=== PATIENT | male | born 1980 | race Caucasian/White ===

== ENCOUNTER 2018-05-05 13:57 | Inpatient (IN) | payer OTHER ==
[2018-05-05 16:47] VITALS: BMI 20.3
--- NOTE | 2018-05-05 16:58 | HP ---
COWS - Scale Resting Pulse: 0= [place] 80 or Below Sweatin= Chills/Flushing Restless Observation: 1= Difficult to Sit Still Pupil Size: 1= Pupils >than Normal Bone or Joint Aches: 1= Mild Discomfort Runny Nose/ Eye Tearin= Runny Nose/Eyes GI Upset > 30mins: 3= Vomiting/Diarrhea Tremor Observation: 2= Slight Tremor Visible Yawning Observation: 2= >3x During Session Anxiety or Irritability: 2=Irritable/Anxious Goose Flesh Skin: 0=Smooth Skin COWS Score: 15 CIWA Score - CIWA Score Nausea/Vomitin Muscle Tremors: 2 Anxiety: 3 Agitation: 3 Paroxysmal Sweats: 2 Orientation: 1-Uncertain about Date (no distress) Tacttile Disturbances: 1-Very Mild Itch/Numbness Auditory Disturbances: 0-None Visual Disturbances: 0-None Headache: 2-Mild CIWA-Ar Total Score: 17 Admission ROS S - HPI Chief Complaint: opioid and alcohol withdrawal Allergies/Adverse Reactions: Allergies Allergy/AdvReac Type Severity Reaction Status Date / Time No Known Allergies Allergy Verified 05/05/18 17:28 History of Present Illness: 37 yo make with hx of heroin (IV), crack /cocaine, THC, alcohol and nicotine dependence presents with withdrawal symptoms and is here for detox. Last detox three months ago at [facility]. PMHX: OA, Hep C, depression. Denies suicidal / homicidal ideation. Denies hx of drug overdose, seizures or blackouts. Longest period of sobriety five years.. Exam Limitations: No Limitations - Ebola screening Have you traveled outside of the country in the last 21 days: No Have you had contact with anyone from an Ebola affected area: No Have you been sick,other than usual withdrawal symptoms: No Do you have a fever: No - Review of Systems Constitutional: Chills, Diaphoresis, Loss of Appetite, Unintentional Wgt. Loss ( 33 lbs) EENT: reports: No Symptoms Reported Respiratory: reports: No Symptoms reported Cardiac: reports: Palpitations GI: reports: Diarrhea, Nausea, Vomiting : reports: No Symptoms Reported Musculoskeletal: reports: Back Pain, Joint Pain Integumentary: reports: No Symptoms Reported Neuro: reports: See HPI, Headache, Tingling, Dizziness Endocrine: reports: Increased Thirst Hematology: reports: No Symptoms Reported Psychiatric: reports: Orientated x3, Depressed Other Systems: Reviewed and Negative Patient History - Patient Medical History Hx Anemia: No Hx Asthma: No Hx Chronic Obstructive Pulmonary Disease (COPD): No Hx Cancer: No Hx Cardiac Disorders: No Hx Congestive Heart Failure: No Hx Hypertension: No Hx Hypercholesterolemia: No Hx Pacemaker: No HX Cerebrovascular Accident: No Hx Seizures: No Hx Dementia: No Hx Diabetes: No Hx Gastrointestinal Disorders: No Hx Liver Disease: Yes Hx Genitourinary Disorders: No Hx Sexually Transmitted Disorders: No Hx Renal Disease (ESRD): Yes (kidney stones) Hx Thyroid Disease: No Hx Human Immunodeficiency Virus (HIV): No (last tested 03/2018 neg results ) Hx Hepatitis C: Yes Hx Depression: Yes (seroquel and prozac) Hx Suicide Attempt: No Hx Bipolar Disorder: No Hx Schizophrenia: No - Patient Surgical History Past Surgical History: Yes Hx Neurologic Surgery: No Hx Cataract Extraction: No Hx Cardiac Surgery: No Hx Lung Surgery: No Hx Breast Surgery: No Hx Breast Biopsy: No Hx Abdominal Surgery: Yes ([facility]. INGUINAL HERNIA REPAIRS) Hx Appendectomy: No Hx Cholecystectomy: No Hx Genitourinary Surgery: No Hx Section: No Hx Orthopedic Surgery: No Anesthesia Reaction: No - PPD History Previous Implant?: Yes Documented Results: Negative w/proof Date: 12/06/15 Results: 0 MM PPD to be Administered?: Yes - Smoking Cessation Smoking history: Current every day smoker Have you smoked in the past 12 months: Yes Aproximately how many cigarettes per day: 30 Hx Chewing Tobacco Use: No Initiated information on smoking cessation: Yes 'Breaking Loose' booklet given: 05/05/18 - Substance & Tx. History Hx Alcohol Use: Yes Hx Substance Use: Yes Substance Use Type: Alcohol, Cocaine, Heroin, Marijuana, Tranquilizers Hx Substance Use Treatment: Yes (Last detox three months ago at [facility].) - Substances Abused Heroin Route: Injection Frequency: Daily Amount used: 8 -9 Age of first use: 11 Date of Last Use: 05/05/18 Crack Route: Smoking Frequency: Daily Amount used: $20 Age of first use: 20 Date of Last Use: 05/04/18 Cocaine Route: Injection Frequency: Daily Amount used: $50 Age of first use: 11 Date of Last Use: 05/05/18 Alcohol Route: Oral Frequency: Daily Amount used: 2 x fourloko + 1/2 pint vodka Age of first use: 10 Date of Last Use: 05/04/18 Marijuana/Hashish Route: Smoking Frequency: Daily Amount used: $20 Age of first use: 9 Date of Last Use: 05/04/18 Family Disease History - Family Disease History Family Disease History: Diabetes: Grandparent Admission Physical Exam [facility] - Vital Signs Vital Signs: Vital Signs - 24 hr 05/05/18 16:45 Temperature 97.5 F L Pulse Rate 79 Respiratory 19 Rate Blood Pressure 130/78 - Physical General Appearance: Yes: Disheveled, Moderate Distress, Thin, Sweating, Anxious HEENTM: Yes: EOMI, Hearing grossly Normal, Normal ENT Inspection, Normocephalic , Normal Voice, SHAZIA, Pharynx Normal, Tm's normal Respiratory: Yes: Within Normal Limits Neck: Yes: Within Normal Limits Breast: Yes: Breast Exam Deferred Cardiology: Yes: Regular Rhythm, Regular Rate Abdominal: Yes: Normal Bowel Sounds, Non Tender, Flat, Soft Genitourinary: Yes: Within Normal Limits Back: Yes: Normal Inspection Musculoskeletal: Yes: full range of Motion, Gait Steady, Pelvis Stable, Muscle Pain Extremities: Yes: Normal Capillary Refill, Normal Inspection, Normal Range of Motion, Non-Tender Neurological: Yes: machine steak tenderizer II-XII NML intact, Fully Oriented, Alert, Motor Strength 5/5, Depressed Affect Integumentary: Yes: Normal Color, Warm, Diaphoresis Lymphatic: Yes: Within Normal Limits - Diagnostic (1) Nicotine dependence Current Visit: Yes Status: Acute Qualifiers: Nicotine product type: cigarettes (2) Marijuana dependence Current Visit: Yes Status: Acute (3) Alcohol dependence with uncomplicated withdrawal Current Visit: Yes Status: Acute (4) Cocaine dependence, uncomplicated Current Visit: Yes Status: Acute (5) Opioid dependence with withdrawal Current Visit: Yes Status: Acute (6) Arthritis Current Visit: Yes Status: Chronic (7) Chronic low back pain Current Visit: Yes Status: Chronic Qualifiers: Back pain laterality: unspecified (8) Hepatitis C Current Visit: Yes Status: Chronic Qualifiers: Viral hepatitis chronicity: unspecified Hepatic coma status: without hepatic coma Qualified Code(s): B19.20 - Unspecified viral hepatitis C without hepatic coma (9) IVDU (intravenous drug user) Current Visit: Yes Status: Acute Cleared for Admission [facility] - Detox or Rehab [facility] Level of Care: Medically Managed Detox Regimen/Protocol: Methadone/Valium [facility] Breath Alcohol Content Breath Alcohol Content: 0 Urine Drug Screen - Results Drug Screen Negative: No Urine Drug Screen Results: AMANDA-Cocaine, OPI-Opiates, AMP-Amphetamines, FEN- Fentanyl
[2018-05-05] MEDS ORDERED: MAG HYDROX/AL HYDROX/SIMETH 30 ML UNIT-DOSE CUP PO PRN (17:07)
[2018-05-05] MEDS ORDERED: MAGNESIUM CITRATE 300 ML BOTTLE PO PRN (17:07)
[2018-05-05] MEDS ORDERED: guaiFENesin/D-METHORPHAN HB 10 ML UNIT-DOSE CUPS PO PRN (17:07)
[2018-05-05] MEDS ORDERED: MAGNESIUM HYDROX 2400MG/30ML ORAL SUSPENSION 30 ML CUP PO PRN (17:07)
[2018-05-05] MEDS ORDERED: LOPERAMIDE HCL 2 MG CAPSULE PO PRN (17:07)
[2018-05-05] MEDS ORDERED: diazePAM 5 MG TABLET PO ONE (17:07)
[2018-05-05] MEDS ORDERED: IBUPROFEN 400 MG TABLET (FP) PO PRN (17:07)
[2018-05-05] MEDS ORDERED: METHADONE HCL 10 MG TABLET (FOR DETOX USE ONLY) PO ONE ×2 (17:07→23:00)
[2018-05-05] MEDS ORDERED: MENTHOL/PHENOL 1 EACH UD MM PRN (17:07)
[2018-05-05] MEDS ORDERED: P-EPHED 60MG/TRIPROLIDI 2.5MG TABLET PO PRN (17:07)
[2018-05-05] MEDS ORDERED: METHADONE HCL 10 MG TABLET (FOR DETOX USE ONLY) ONE (21:52)
[2018-05-05] MEDS ORDERED: MELATONIN 5 MG TABLETS PO PRN (22:00)
[2018-05-05] MEDS: THIAMINE HCL 100 MG TABLET (FP) PO SCH (22:23)
[2018-05-05] MEDS: diazePAM 5 MG TABLET PO SCH (22:25)
[2018-05-06 02:02] LABS: URINE APPEARANCE CLOUDY; URINE BILIRUBIN NEGATIVE (<2.0 mg/dL); URINE COLOR YELLOW; URINE GLUCOSE (UA) NEGATIVE (NEGATIVE); URINE KETONE NEGATIVE (NEGATIVE); URINE LEUK ESTERASE NEGATIVE (NEGATIVE); URINE NITRITE NEGATIVE (NEGATIVE); URINE PROTEIN NEGATIVE (NEGATIVE); URINE UROBILINOGEN NEGATIVE mg/dL (0.2-1.0)
[2018-05-06 02:53] LABS: CALCIUM OXALATE CRYSTALS RARE /hpf (NONE SEEN); EPI CELLS RARE /HPF (FEW); URINE MUCUS MANY
[2018-05-06] MEDS: diazePAM 5 MG TABLET PO SCH ×3 (05:51→22:20)
[2018-05-06] MEDS ORDERED: METHADONE HCL 10 MG TABLET (FOR DETOX USE ONLY) PO SCH (10:00)
[2018-05-06 10:02] LABS: HEMATOCRIT 39.4 % (35.4-49); HEMOGLOBIN 12.5 GM/dL (11.7-16.9); MCH 27.8 pg (25.7-33.7); MCHC 31.6 g/dl (32.0-35.9); MEAN CELL VOLUME 87.7 fl (80-96); PLATELET COUNT 202 K/MM3 (134-434); RBC 4.49 M/mm3 (4.00-5.60)
[2018-05-06] MEDS: NICOTINE POLACRILEX 4 MG GUM BC PRN ×2 (10:32→22:44)
[2018-05-06] MEDS: NICOTINE 21 MG/24 HOURS TOPICAL PATCH TD SCH (10:32)
[2018-05-06] MEDS: diazePAM 5 MG TABLET PO PRN ×2 (10:32→17:09)
[2018-05-06] MEDS: PRENATAL VITAMINS W/ FOLIC ACID TABLET (FP) PO SCH (10:32)
[2018-05-06] MEDS: ACETAMINOPHEN 325 MG TABLET (FP) PO PRN (10:34)
[2018-05-06] MEDS ORDERED: COLLOIDAL OATMEAL 1 BAR EACH TP PRN (10:43)
[2018-05-06] MEDS ORDERED: ONDANSETRON *ODT* 4 MG TABLET SL PRN (10:44)
[2018-05-06 10:48] LABS: ALBUMIN 3.4 g/dl (3.4-5.0); ALK PHOS 65 U/L (45-117); ANION GAP 11 MMOL/L (8-16); BILIRUBIN,TOTAL 0.4 mg/dL (0.2-1); BLOOD UREA NITROGEN 9 mg/dL (7-18); CHLORIDE 104 mmol/L (98-107); CO2 27 mmol/L (21-32); CREATININE 0.7 mg/dL (0.55-1.3); GLUCOSE,RANDOM 83 mg/dL (74-106); POTASSIUM 4.4 mmol/L (3.5-5.1); SGOT/AST 10 U/L (15-37); SGPT/ALT 18 U/L (13-61); SODIUM 142 mmol/L (136-145); TOT PROT 6.2 g/dl (6.4-8.2)
--- NOTE | 2018-05-06 11:44 | EKG ---
Test Reason : Blood Pressure : / mmHG Vent. Rate : 073 BPM Atrial Rate : 073 BPM P-R Int : 124 ms QRS Dur : 086 ms QT Int : 372 ms P-R-T Axes : -01 058 050 degrees QTc Int : 409 ms NORMAL SINUS RHYTHM MINIMAL VOLTAGE CRITERIA FOR LVH, MAY BE NORMAL VARIANT EARLY REPOLARIZATION BORDERLINE ECG NO PREVIOUS ECGS AVAILABLE Confirmed by RONNELL MOORE, JOSE CRUZ ([id number]) on 05/06/2018 11:43:53 AM Referred By: Confirmed By:JOSE CRUZ REYNAGA MD
[2018-05-06] MEDS: HYDROCORTISONE 1% TOPICAL CREAM 30 GM TUBE TP SCH ×2 (13:34→22:20)
--- NOTE | 2018-05-06 13:42 | CONSULT ---
[facility] Psychiatric Consult - Data Date of interview: 05/06/18 Admission source: [facility] Identifying data: Another admission to [facility] for this 37 y/o male self-referred for detoxification treatment (heroin,cocaine,cannabis,alcohol, xanax).Admitted to [address] [place] [address].Patient is single,a father of five,homeless, unemployed and supported on food stamps. Substance Abuse History: Discussed with the patient in my interview.Mr Jonas confirms this [facility] report about his substance abuse profile.Details as follows : Smoking history: Current every day smoker. Have you smoked in the past 12 months: Yes. Aproximately how many cigarettes per day: 30. Hx Chewing Tobacco Use: No. Initiated information on smoking cessation: Yes. 'Breaking Loose' booklet given: 05/05/18. - Substance & Tx. History. Hx Alcohol Use: Yes. Hx Substance Use: Yes. Substance Use Type: Alcohol, Cocaine, Heroin, Marijuana, Tranquilizers. Hx Substance Use Treatment: Yes (Last detox three months ago at [facility] - Substances Abused. Heroin. Route: Injection. Frequency: Daily. Amount used: 8 -9. Age of first use: 11. Date of Last Use: 05/05/18. Crack. Route: Smoking. Frequency: Daily. Amount used: $20. Age of first use: 20. Date of Last Use: 05/04/18. Cocaine. Route: Injection. Frequency: Daily. Amount used: $50. Age of first use: 11. Date of Last Use: 05/05/18. Alcohol. Route: Oral. Frequency: Daily. Amount used: 2 x fourloko + 1/2 pint vodka. Age of first use: 10. Date of Last Use: . Marijuana/Hashish. Route: Smoking. Frequency: Daily. Amount used: $ 20. Age of first use: 9. Date of Last Use: 05/04/18 Medical History: History of kidney stones,arthritis,hepatitis C and a history of bilateral herniorraphy. Psychiatric History: Patient, in this interview, indicates a history of one psychiatric hospitalization (2000) at a facility in [facility] (name not recalled) .States that he was " hearing voices " at the time.Does not remember names of psychotropics prescribed at the time.No information about diagnosis.No psychiatric follow-up since 2000 until recently (a month ago upon returning from [place]).Mr Pritesh declares that he currently sees a psychiatrist at [facility] for suboxone maintenance (for now two weeks).Patient reports one suicide attempt via hanging (2000). Physical/Sexual Abuse/Trauma History: Patient denies. Additional Comment: Urine Drug Screen Results: AMANDA-Cocaine, OPI-Opiates, AMP- Amphetamines, FEN-Fentanyl.Noted. Mental Status Exam - Mental Status Exam Alert and Oriented to: Time, Place, Person Cognitive Function: Good Patient Appearance: Well Groomed Mood: Nervous, Withdrawn, Anxious, Irritable Affect: Mood Congruent, Constricted Patient Behavior: Fatigued, Cooperative Speech Pattern: Clear, Appropriate Voice Loudness: Normal Thought Process: Intact, Goal Oriented Thought Disorder: Not Present Hallucinations: Denies Suicidal Ideation: Denies Homicidal Ideation: Denies Insight/Judgement: Poor Sleep: Poorly, Difficulty falling asleep Appetite: Good Muscle strength/Tone: Normal Gait/Station: Normal Psychiatric Findings - Problem List ([place] 1, 2,3) (1) Opioid dependence with withdrawal Current Visit: Yes Status: Acute (2) Alcohol dependence with uncomplicated withdrawal Current Visit: Yes Status: Acute (3) Cocaine dependence, uncomplicated Current Visit: Yes Status: Acute (4) Marijuana dependence Current Visit: Yes Status: Acute Comment: As per self-report.Toxicology is negative for THC on this admission. (5) Nicotine dependence Current Visit: Yes Status: Acute Qualifiers: Nicotine product type: cigarettes (6) Substance induced mood disorder Current Visit: Yes Status: Acute (7) Insomnia Current Visit: Yes Status: Acute - Initial Treatment Plan Initial Treatment Plan: Psychoeducation.Detoxification in progress.Sleep hygiene.Ambien 10 mg po hs prn.Side effects/benefits discussed with the patient.Agrees to this careplan.Observation.
--- NOTE | 2018-05-06 14:55 | PN ---
[facility] CIWA - CIWA Score Nausea/Vomitin Muscle Tremors: 4-Moderate,w/Arms Extend Anxiety: 4-Mod. Anxious/Guarded Agitation: 3 Paroxysmal Sweats: 3 Orientation: 0-Oriented Tacttile Disturbances: 0-None Auditory Disturbances: 0-None Visual Disturbances: 0-None Headache: 1-Very Mild CIWA-Ar Total Score: 18 [facility] COWS - Scale Resting Pulse: 0= [place] 80 or Below Sweatin= Chills/Flushing Restless Observation: 3= Extraneous Movement Pupil Size: 0= Normal to Room Light Bone or Joint Aches: 2= Severe Diffuse Aches Runny Nose/ Eye Tearin= Runny Nose/Eyes GI Upset > 30mins: 2= Nausea/Diarrhea Tremor Observation of Outstretched Hands: 2= Slight Tremor Visible Yawning Observation: 1= 1-2x During Session Anxiety or Irritability: 2=Irritable/Anxious Goose Flesh Skin: 0=Smooth Skin COWS Score: 15 [facility] Progress Note (SOAP) Subjective: Sweating, blurry vision, nausea; c/o itchy rash on chest and back requesting medication for rash Objective: 05/06/18 14:52 Last Vital Signs Temp Pulse Resp BP Pulse Ox 98.6 F 60 18 112/70 05/06/18 14:23 05/06/18 14:23 05/06/18 14:23 05/06/18 14:23 Laboratory Tests 05/05/18 05/06/18 05/06/18 20:08 07:30 07:30 WBC 5.0 RBC 4.49 Hgb 12.5 Hct 39.4 MCV 87.7 MCH 27.8 MCHC 31.6 L RDW 13.0 Plt Count 202 MPV 9.0 Sodium 142 Potassium 4.4 Chloride 104 Carbon Dioxide 27 Anion Gap 11 BUN 9 Creatinine 0.7 Creat Clearance w eGFR > 60 Random Glucose 83 Calcium 9.0 Total Bilirubin 0.4 AST 10 L ALT 18 Alkaline Phosphatase 65 Total Protein 6.2 L Albumin 3.4 Urine Color Yellow Urine Appearance Cloudy Urine pH 5.0 D Ur Specific [place] 1.029 Urine Protein Negative Urine Glucose (UA) Negative Urine Ketones Negative Urine Blood 1+ H Urine Nitrite Negative Urine Bilirubin Negative Urine Urobilinogen Negative Ur Leukocyte Esterase Negative Urine WBC (Auto) None Urine RBC (Auto) 69 Ur Epithelial Cells Rare Calcium Oxalate Crystal Rare Urine Mucus Many RPR Titer 05/06/18 07:30 WBC RBC Hgb Hct MCV MCH MCHC RDW Plt Count MPV Sodium Potassium Chloride Carbon Dioxide Anion Gap BUN Creatinine Creat Clearance w eGFR Random Glucose Calcium Total Bilirubin AST ALT Alkaline Phosphatase Total Protein Albumin Urine Color Urine Appearance Urine pH Ur Specific [place] Urine Protein Urine Glucose (UA) Urine Ketones Urine Blood Urine Nitrite Urine Bilirubin Urine Urobilinogen Ur Leukocyte Esterase Urine WBC (Auto) Urine RBC (Auto) Ur Epithelial Cells Calcium Oxalate Crystal Urine Mucus RPR Titer Nonreactive Labs reviewed: abnormal UA noted Assessment: 05/06/18 14:54 Withdrawal symptoms Noted with abnormal UA Plan: Continue detox Abnormal UA: encouraged PO water hydration, repeat UA
[2018-05-06] MEDS: THIAMINE HCL 100 MG TABLET (FP) PO SCH (22:20)
[2018-05-06] MEDS: ZOLPIDEM TARTRATE 10 MG TABLET (PARK CARE ONLY) PO PRN (22:20)
[2018-05-07] MEDS: diazePAM 5 MG TABLET PO PRN ×3 (00:29→18:33)
[2018-05-07] MEDS: METHADONE HCL 5 MG TABLET (FOR DETOX USE ONLY) PO SCH (10:28)
[2018-05-07] MEDS: PRENATAL VITAMINS W/ FOLIC ACID TABLET (FP) PO SCH (10:28)
[2018-05-07] MEDS: HYDROCORTISONE 1% TOPICAL CREAM 30 GM TUBE TP SCH ×2 (10:28→22:28)
[2018-05-07] MEDS: NICOTINE 21 MG/24 HOURS TOPICAL PATCH TD SCH (10:29)
[2018-05-07] MEDS: diazePAM 5 MG TABLET PO SCH ×2 (10:29→22:29)
--- NOTE | 2018-05-07 13:31 | PN ---
S CIWA - CIWA Score Nausea/Vomitin Muscle Tremors: 3 Anxiety: 3 Agitation: 3 Paroxysmal Sweats: 3 Orientation: 0-Oriented Tacttile Disturbances: 0-None Auditory Disturbances: 0-None Visual Disturbances: 0-None Headache: 1-Very Mild CIWA-Ar Total Score: 15 [facility] COWS - Scale Resting Pulse: 1= [place] 81-100 Sweatin= Chills/Flushing Restless Observation: 3= Extraneous Movement Pupil Size: 0= Normal to Room Light Bone or Joint Aches: 2= Severe Diffuse Aches Runny Nose/ Eye Tearin= Runny Nose/Eyes GI Upset > 30mins: 2= Nausea/Diarrhea Tremor Observation of Outstretched Hands: 2= Slight Tremor Visible Yawning Observation: 1= 1-2x During Session Anxiety or Irritability: 2=Irritable/Anxious Goose Flesh Skin: 0=Smooth Skin COWS Score: 16 S Progress Note (SOAP) Subjective: Chills, stomachache, sweating, interrupted sleep Objective: 05/07/18 13:29 Last Vital Signs Temp Pulse Resp BP Pulse Ox 96.4 F L 92 H 18 108/78 05/07/18 13:24 05/07/18 13:24 05/07/18 13:24 05/07/18 13:24 Laboratory Tests 05/05/18 05/06/18 05/06/18 20:08 07:30 07:30 WBC 5.0 RBC 4.49 Hgb 12.5 Hct 39.4 MCV 87.7 MCH 27.8 MCHC 31.6 L RDW 13.0 Plt Count 202 MPV 9.0 Sodium 142 Potassium 4.4 Chloride 104 Carbon Dioxide 27 Anion Gap 11 BUN 9 Creatinine 0.7 Creat Clearance w eGFR > 60 Random Glucose 83 Calcium 9.0 Total Bilirubin 0.4 AST 10 L ALT 18 Alkaline Phosphatase 65 Total Protein 6.2 L Albumin 3.4 Urine Color Yellow Urine Appearance Cloudy Urine pH 5.0 D Ur Specific [place] 1.029 Urine Protein Negative Urine Glucose (UA) Negative Urine Ketones Negative Urine Blood 1+ H Urine Nitrite Negative Urine Bilirubin Negative Urine Urobilinogen Negative Ur Leukocyte Esterase Negative Urine WBC (Auto) None Urine RBC (Auto) 69 Ur Epithelial Cells Rare Calcium Oxalate Crystal Rare Urine Mucus Many RPR Titer 05/06/18 07:30 WBC RBC Hgb Hct MCV MCH MCHC RDW Plt Count MPV Sodium Potassium Chloride Carbon Dioxide Anion Gap BUN Creatinine Creat Clearance w eGFR Random Glucose Calcium Total Bilirubin AST ALT Alkaline Phosphatase Total Protein Albumin Urine Color Urine Appearance Urine pH Ur Specific [place] Urine Protein Urine Glucose (UA) Urine Ketones Urine Blood Urine Nitrite Urine Bilirubin Urine Urobilinogen Ur Leukocyte Esterase Urine WBC (Auto) Urine RBC (Auto) Ur Epithelial Cells Calcium Oxalate Crystal Urine Mucus RPR Titer Nonreactive Labs reviewed: abnormal UA (repeated UA result pending) Assessment: 05/07/18 13:30 Withdrawal symptoms Noted with abnormal UA Plan: Continue detox Abnormal UA: encouraged PO water hydration, follow up on repeated UA result
[2018-05-07] MEDS: ACETAMINOPHEN 325 MG TABLET (FP) PO PRN (14:29)
[2018-05-07 14:31] LABS: URINE APPEARANCE CLEAR; URINE BILIRUBIN NEGATIVE (<2.0 mg/dL); URINE COLOR YELLOW; URINE GLUCOSE (UA) NEGATIVE (NEGATIVE); URINE KETONE NEGATIVE (NEGATIVE); URINE LEUK ESTERASE NEGATIVE (NEGATIVE); URINE NITRITE NEGATIVE (NEGATIVE); URINE PROTEIN NEGATIVE (NEGATIVE); URINE UROBILINOGEN NEGATIVE mg/dL (0.2-1.0)
[2018-05-07] MEDS: THIAMINE HCL 100 MG TABLET (FP) PO SCH (22:28)
[2018-05-07] MEDS: ZOLPIDEM TARTRATE 10 MG TABLET (PARK CARE ONLY) PO PRN (22:29)
[2018-05-08] MEDS: diazePAM 5 MG TABLET PO PRN ×3 (01:00→14:02)
[2018-05-08] MEDS: NICOTINE 21 MG/24 HOURS TOPICAL PATCH TD SCH (10:41)
[2018-05-08] MEDS: PRENATAL VITAMINS W/ FOLIC ACID TABLET (FP) PO SCH (10:41)
[2018-05-08] MEDS: HYDROCORTISONE 1% TOPICAL CREAM 30 GM TUBE TP SCH ×2 (10:41→21:40)
[2018-05-08] MEDS: METHADONE HCL 5 MG TABLET (FOR DETOX USE ONLY) PO SCH (10:41)
[2018-05-08] MEDS: diazePAM 5 MG TABLET PO SCH ×2 (10:41→21:39)
--- NOTE | 2018-05-08 14:21 | PN ---
[facility] Progress Note (SOAP) Subjective: Sweating, chills, tremor, headache, interrupted sleep Objective: 05/08/18 14:17 Last Vital Signs Temp Pulse Resp BP Pulse Ox 97.0 F L 104 H 18 113/78 05/08/18 13:45 05/08/18 13:45 05/08/18 13:45 05/08/18 13:45 Laboratory Tests 05/05/18 05/06/18 05/06/18 20:08 07:30 07:30 WBC 5.0 RBC 4.49 Hgb 12.5 Hct 39.4 MCV 87.7 MCH 27.8 MCHC 31.6 L RDW 13.0 Plt Count 202 MPV 9.0 Sodium 142 Potassium 4.4 Chloride 104 Carbon Dioxide 27 Anion Gap 11 BUN 9 Creatinine 0.7 Creat Clearance w eGFR > 60 Random Glucose 83 Calcium 9.0 Total Bilirubin 0.4 AST 10 L ALT 18 Alkaline Phosphatase 65 Total Protein 6.2 L Albumin 3.4 Urine Color Yellow Urine Appearance Cloudy Urine pH 5.0 D Ur Specific [place] 1.029 Urine Protein Negative Urine Glucose (UA) Negative Urine Ketones Negative Urine Blood 1+ H Urine Nitrite Negative Urine Bilirubin Negative Urine Urobilinogen Negative Ur Leukocyte Esterase Negative Urine WBC (Auto) None Urine RBC (Auto) 69 Ur Epithelial Cells Rare Calcium Oxalate Crystal Rare Urine Mucus Many RPR Titer 05/06/18 05/07/18 07:30 13:00 WBC RBC Hgb Hct MCV MCH MCHC RDW Plt Count MPV Sodium Potassium Chloride Carbon Dioxide Anion Gap BUN Creatinine Creat Clearance w eGFR Random Glucose Calcium Total Bilirubin AST ALT Alkaline Phosphatase Total Protein Albumin Urine Color Yellow Urine Appearance Clear Urine pH 7.0 D Ur Specific [place] 1.012 Urine Protein Negative Urine Glucose (UA) Negative Urine Ketones Negative Urine Blood Negative Urine Nitrite Negative Urine Bilirubin Negative Urine Urobilinogen Negative Ur Leukocyte Esterase Negative Urine WBC (Auto) Urine RBC (Auto) Ur Epithelial Cells Calcium Oxalate Crystal Urine Mucus RPR Titer Nonreactive Labs reviewed: abnormal UA resolved Assessment: 05/08/18 14:18 Withdrawal symptoms Plan: Continue detox
[2018-05-08] MEDS: THIAMINE HCL 100 MG TABLET (FP) PO SCH (21:39)
[2018-05-08] MEDS: ZOLPIDEM TARTRATE 10 MG TABLET (PARK CARE ONLY) PO PRN (21:39)
[2018-05-09] MEDS ORDERED: hydrOXYzine PAMOATE 25 MG CAPSULE (FP) PO ONE (01:56)
[2018-05-09] MEDS ORDERED: METHADONE HCL 10 MG TABLET (FOR DETOX USE ONLY) PO SCH (10:00)
[2018-05-09] MEDS ORDERED: diazePAM 5 MG TABLET PO SCH (10:00)
[2018-05-09] MEDS: NICOTINE 21 MG/24 HOURS TOPICAL PATCH TD SCH ×2 (10:21→10:23)
[2018-05-09] MEDS: PRENATAL VITAMINS W/ FOLIC ACID TABLET (FP) PO SCH (10:21)
[2018-05-09] MEDS: HYDROCORTISONE 1% TOPICAL CREAM 30 GM TUBE TP SCH ×2 (10:21→22:30)
--- NOTE | 2018-05-09 12:17 | PN ---
S Progress Note (SOAP) Subjective: Generalized pain, nausea and abdominal cramps Objective: 05/09/18 12:15 Vital Signs 05/09/18 05/09/18 06:26 06:30 Temperature 97.3 F L Pulse Rate 71 Respiratory 16 18 Rate Blood Pressure 117/71 Laboratory Last Values WBC 5.0 K/mm3 (4.0-10.0) 05/06/18 07:30 RBC 4.49 M/mm3 (4.00-5.60) 05/06/18 07:30 Hgb 12.5 GM/dL (11.7-16.9) 05/06/18 07:30 Hct 39.4 % (35.4-49) 05/06/18 07:30 MCV 87.7 fl (80-96) 05/06/18 07:30 MCH 27.8 pg (25.7-33.7) 05/06/18 07:30 MCHC 31.6 g/dl (32.0-35.9) L 05/06/18 07:30 RDW 13.0 % (11.9-15.9) 05/06/18 07:30 Plt Count 202 K/MM3 (134-434) 05/06/18 07:30 MPV 9.0 fl (7.5-11.1) 05/06/18 07:30 Sodium 142 mmol/L (136-145) 05/06/18 07:30 Potassium 4.4 mmol/L (3.5-5.1) 05/06/18 07:30 Chloride 104 mmol/L (98-107) 05/06/18 07:30 Carbon Dioxide 27 mmol/L (21-32) 05/06/18 07:30 Anion Gap 11 MMOL/L (8-16) 05/06/18 07:30 BUN 9 mg/dL (7-18) 05/06/18 07:30 Creatinine 0.7 mg/dL (0.55-1.3) 05/06/18 07:30 Creat Clearance w eGFR > 60 (>60) 05/06/18 07:30 Random Glucose 83 mg/dL (74-106) 05/06/18 07:30 Calcium 9.0 mg/dL (8.5-10.1) 05/06/18 07:30 Total Bilirubin 0.4 mg/dL (0.2-1) 05/06/18 07:30 AST 10 U/L (15-37) L 05/06/18 07:30 ALT 18 U/L (13-61) 05/06/18 07:30 Alkaline Phosphatase 65 U/L (45-117) 05/06/18 07:30 Total Protein 6.2 g/dl (6.4-8.2) L 05/06/18 07:30 Albumin 3.4 g/dl (3.4-5.0) 05/06/18 07:30 Urine Color Yellow 05/07/18 13:00 Urine Appearance Clear 05/07/18 13:00 Urine pH 7.0 (5.0-8.0) D 05/07/18 13:00 Ur Specific [place] 1.012 (1.001-1.035) 05/07/18 13:00 Urine Protein Negative (NEGATIVE) 05/07/18 13:00 Urine Glucose (UA) Negative (NEGATIVE) 05/07/18 13:00 Urine Ketones Negative (NEGATIVE) 05/07/18 13:00 Urine Blood Negative (NEGATIVE) 05/07/18 13:00 Urine Nitrite Negative (NEGATIVE) 05/07/18 13:00 Urine Bilirubin Negative (<2.0 mg/dL) 05/07/18 13:00 Urine Urobilinogen Negative mg/dL (0.2-1.0) 05/07/18 13:00 Ur Leukocyte Esterase Negative (NEGATIVE) 05/07/18 13:00 Urine WBC (Auto) None /hpf (3-5) 05/05/18 20:08 Urine RBC (Auto) 69 /hpf (0-3) 05/05/18 20:08 Ur Epithelial Cells Rare /HPF (FEW) 05/05/18 20:08 Calcium Oxalate Crystal Rare /hpf (NONE SEEN) 05/05/18 20:08 Urine Mucus Many 05/05/18 20:08 RPR Titer Nonreactive (NONREACTIVE) 05/06/18 07:30 Labs noted Assessment: 05/09/18 12:16 Withdrawal sx Plan: Continue detox
[2018-05-09] MEDS: ZOLPIDEM TARTRATE 10 MG TABLET (PARK CARE ONLY) PO PRN (21:55)
[2018-05-09] MEDS: THIAMINE HCL 100 MG TABLET (FP) PO SCH (22:30)
--- NOTE | 2018-05-09 23:25 | EKG ---
Test Reason : Blood Pressure : / mmHG Vent. Rate : 068 BPM Atrial Rate : 068 BPM P-R Int : 122 ms QRS Dur : 086 ms QT Int : 376 ms P-R-T Axes : -06 052 046 degrees QTc Int : 399 ms NORMAL SINUS RHYTHM NORMAL ECG WHEN COMPARED WITH ECG OF 05-MAY-2018 21:31, NO SIGNIFICANT CHANGE WAS FOUND Confirmed by SUSIE COLLINS MD ([id number]) on 05/09/2018 11:25:01 PM Referred By: Confirmed By:SUSIE COLLINS MD
[2018-05-10] MEDS ORDERED: METHADONE HCL 5 MG TABLET (FOR DETOX USE ONLY) PO SCH (06:00)
[2018-05-10] MEDS: NICOTINE 21 MG/24 HOURS TOPICAL PATCH TD SCH (11:53)
[2018-05-10] MEDS: PRENATAL VITAMINS W/ FOLIC ACID TABLET (FP) PO SCH (11:53)
[2018-05-10] MEDS: HYDROCORTISONE 1% TOPICAL CREAM 30 GM TUBE TP SCH (11:53)
--- NOTE | 2018-05-10 17:21 | PN ---
[facility] Progress Note (SOAP) Subjective: Sweating, chills, interrupted sleep Objective: 05/10/18 17:20 Last Vital Signs Temp Pulse Resp BP Pulse Ox 96.8 F L 95 H 18 119/78 05/10/18 14:47 05/10/18 14:47 05/10/18 14:47 05/10/18 14:47 Laboratory Tests 05/05/18 05/06/18 05/06/18 20:08 07:30 07:30 WBC 5.0 RBC 4.49 Hgb 12.5 Hct 39.4 MCV 87.7 MCH 27.8 MCHC 31.6 L RDW 13.0 Plt Count 202 MPV 9.0 Sodium 142 Potassium 4.4 Chloride 104 Carbon Dioxide 27 Anion Gap 11 BUN 9 Creatinine 0.7 Creat Clearance w eGFR > 60 Random Glucose 83 Calcium 9.0 Total Bilirubin 0.4 AST 10 L ALT 18 Alkaline Phosphatase 65 Total Protein 6.2 L Albumin 3.4 Urine Color Yellow Urine Appearance Cloudy Urine pH 5.0 D Ur Specific [place] 1.029 Urine Protein Negative Urine Glucose (UA) Negative Urine Ketones Negative Urine Blood 1+ H Urine Nitrite Negative Urine Bilirubin Negative Urine Urobilinogen Negative Ur Leukocyte Esterase Negative Urine WBC (Auto) None Urine RBC (Auto) 69 Ur Epithelial Cells Rare Calcium Oxalate Crystal Rare Urine Mucus Many RPR Titer 05/06/18 05/07/18 07:30 13:00 WBC RBC Hgb Hct MCV MCH MCHC RDW Plt Count MPV Sodium Potassium Chloride Carbon Dioxide Anion Gap BUN Creatinine Creat Clearance w eGFR Random Glucose Calcium Total Bilirubin AST ALT Alkaline Phosphatase Total Protein Albumin Urine Color Yellow Urine Appearance Clear Urine pH 7.0 D Ur Specific [place] 1.012 Urine Protein Negative Urine Glucose (UA) Negative Urine Ketones Negative Urine Blood Negative Urine Nitrite Negative Urine Bilirubin Negative Urine Urobilinogen Negative Ur Leukocyte Esterase Negative Urine WBC (Auto) Urine RBC (Auto) Ur Epithelial Cells Calcium Oxalate Crystal Urine Mucus RPR Titer Nonreactive Labs reviewed Assessment: 05/10/18 17:21 Withdrawal sx Plan: Continue detox
[2018-05-10 18:37] VITALS: BP 117/71; PULSE 96; TEMP 96.2
--- NOTE | 2018-05-10 19:12 | PN ---
[facility] Progress Note Note: patient would like to go home today,stable for discharge today,stated would like to go to other rehab,did not want to go to [facility] here, stable for discharge today
--- NOTE | 2018-05-10 19:14 | DS ---
[facility] Detox Discharge Summary Admission Date: 05/05/18 Discharge Date: 05/10/18 - History Present History: Alcohol Dependence, Cocaine Dependence, Opioid Dependence Additional Comments: stable for discharge today,follow up with after care program as arrangement Pertinent Past History: low back pain hepatitriis c arthritis - Physical Exam Results Vital Signs: Vital Signs Temperature 96.2 F L 05/10/18 18:36 Pulse Rate 96 H 05/10/18 18:36 Respiratory Rate 19 05/10/18 18:36 Blood Pressure 117/71 05/10/18 18:36 O2 Sat by Pulse Oximetry (%) Pertinent Admission Physical Exam Findings: withdrawal signs and symptom - Treatment Hospital Course: Detox Protocol Followed, Detoxed Safely, Responded well, Discharged Condition Good Patient has Accepted a Rehab Referral to: declined - Medication Discharge Medications: Ambulatory Orders Fluoxetine HCl [Prozac -] 20 mg PO DAILY 05/05/18 Quetiapine Fumarate [Seroquel -] 50 mg PO HS 05/05/18 - AMA Did Patient Leave Against Medical Advice: No
== END 2018-05-10 19:30 | disposition home or self-care (01) | DRG 773 ==
LOC: YASAS 13:57 → Y3N 18:01
PROC: HZ2ZZZZ Detoxification Services for Substance Abuse Treatment (ICD-10-PCS; principal; 2018-05-05)
DX: F11.23 Opioid dependence with withdrawal (principal); F10.230 Alcohol dependence with withdrawal, uncomplicated; F14.20 Cocaine dependence, uncomplicated; F12.20 Cannabis dependence, uncomplicated; F17.210 Nicotine dependence, cigarettes, uncomplicated; F32.9 Major depressive disorder, single episode, unspecified; F19.24 Other psychoactive substance dependence with psychoactive substance-induced mood disorder; G47.00 Insomnia, unspecified; B18.2 Chronic viral hepatitis C; M12.9 Arthropathy, unspecified; M54.5 Low back pain; G89.29 Other chronic pain; R82.90 Unspecified abnormal findings in urine; Z87.442 Personal history of urinary calculi; Z59.0 Homelessness
CPT/HCPCS: 36415; 80053; 81003; 81015; 85027; 86593; 93005; 93010

== ENCOUNTER 2021-09-07 16:11 | Inpatient (IN) | payer OTHER ==
[2021-09-07 17:01] VITALS: BMI 20.3
[2021-09-07] MEDS ORDERED: IBUPROFEN 400 MG TABLET (FP) PO PRN (21:52)
[2021-09-07] MEDS ORDERED: cloNIDine HCL 0.1 MG TABLET PO PRN (21:52)
[2021-09-07] MEDS ORDERED: METHOCARBAMOL 500 MG TABLET PO PRN (21:52)
[2021-09-07] MEDS ORDERED: MAGNESIUM CITRATE 300 ML BOTTLE PO PRN (21:52)
[2021-09-07] MEDS ORDERED: MAGNESIUM HYDROX 2400MG/30ML ORAL SUSPENSION 30 ML CUP PO PRN (21:52)
[2021-09-07] MEDS ORDERED: BISMUTH SUBSALICYLATE 524 MG/30 ML PO PRN (21:52)
[2021-09-07] MEDS ORDERED: MAG HYDROX/AL HYDROX/SIMETH 30 ML UNIT-DOSE CUP PO PRN (21:52)
[2021-09-07] MEDS ORDERED: methaDONE HCL 10 MG TABLET (FOR DETOX USE ONLY) PO ONE (21:52)
[2021-09-07] MEDS ORDERED: NICOTINE 10 MG CARTRIDGE (INHALER) IH PRN (21:52)
[2021-09-07] MEDS ORDERED: ACETAMINOPHEN 325 MG TABLET (FP) PO PRN ×2 (21:52)
[2021-09-07] MEDS ORDERED: ONDANSETRON *ODT* 4 MG TABLET SL PRN (21:52)
[2021-09-07] MEDS ORDERED: MENTHOL/PHENOL 1 EACH UD MM PRN (21:52)
[2021-09-07] MEDS ORDERED: MELATONIN 5 MG TABLETS PO SCH (22:00)
[2021-09-07] MEDS: BACITRACIN 0.9 GM PACKET TP SCH (23:45)
[2021-09-07] MEDS: THIAMINE HCL 100 MG TABLET (FP) PO SCH (23:45)
[2021-09-08] MEDS ORDERED: methaDONE HCL 10 MG TABLET (FOR DETOX USE ONLY) ONE (09:04)
[2021-09-08] MEDS: NICOTINE 21 MG/24 HOURS TOPICAL PATCH TD SCH (10:50)
[2021-09-08] MEDS: BACITRACIN 0.9 GM PACKET TP SCH ×2 (10:50→22:46)
[2021-09-08] MEDS: PRENATAL VITAMINS W/ FOLIC ACID TABLET (FP) PO SCH (10:50)
[2021-09-08] MEDS: diazePAM 5 MG TABLET PO PRN ×2 (10:52→22:48)
[2021-09-08] MEDS ORDERED: QUEtiapine FUMARATE 25 MG TABLET PO SCH (22:00)
[2021-09-08] MEDS: THIAMINE HCL 100 MG TABLET (FP) PO SCH (22:46)
[2021-09-09] MEDS: diazePAM 5 MG TABLET PO PRN (06:09)
[2021-09-09 06:56] VITALS: PULSE 87
[2021-09-09 09:17] VITALS: BP 120/81; TEMP 96.7
[2021-09-09] MEDS ORDERED: methaDONE HCL 10 MG TABLET (FOR DETOX USE ONLY) PO ONE (10:00)
[2021-09-09] MEDS: PRENATAL VITAMINS W/ FOLIC ACID TABLET (FP) PO SCH (10:40)
[2021-09-09] MEDS: NICOTINE 21 MG/24 HOURS TOPICAL PATCH TD SCH (10:40)
[2021-09-09] MEDS: BACITRACIN 0.9 GM PACKET TP SCH (10:40)
[2021-09-11] MEDS ORDERED: methaDONE HCL 10 MG TABLET (FOR DETOX USE ONLY) PO ONE (10:00)
== END 2021-09-09 10:18 | disposition left against medical advice (07) | DRG 770 ==
LOC: YASAS 16:11 → Y6N 22:42
PROVIDERS: ADMIT Allergy & Immunology; ATTEND Allergy & Immunology
PROC: HZ2ZZZZ Detoxification Services for Substance Abuse Treatment (ICD-10-PCS; principal; 2021-09-07)
DX: F11.23 Opioid dependence with withdrawal (principal); F14.20 Cocaine dependence, uncomplicated; F17.210 Nicotine dependence, cigarettes, uncomplicated; F19.280 Other psychoactive substance dependence with psychoactive substance-induced anxiety disorder; F19.282 Other psychoactive substance dependence with psychoactive substance-induced sleep disorder; F19.24 Other psychoactive substance dependence with psychoactive substance-induced mood disorder; F32.A Depression, unspecified; B19.20 Unspecified viral hepatitis C without hepatic coma; Z86.59 Personal history of other mental and behavioral disorders; Z56.0 Unemployment, unspecified; Z59.02 Unsheltered homelessness
CPT/HCPCS: 93005; 93010; C9803; U0003; U0005

== ENCOUNTER 2021-10-22 16:37 | Inpatient (IN) | payer OTHER ==
[2021-10-22] MEDS ORDERED: LOPERAMIDE HCL 2 MG CAPSULE PO PRN (19:58)
[2021-10-22] MEDS ORDERED: NICOTINE 10 MG CARTRIDGE (INHALER) IH PRN (19:58)
[2021-10-22] MEDS ORDERED: P-EPHED 60MG/TRIPROLIDI 2.5MG TABLET PO PRN (19:58)
[2021-10-22] MEDS ORDERED: ONDANSETRON *ODT* 4 MG TABLET SL PRN (19:58)
[2021-10-22] MEDS ORDERED: ACETAMINOPHEN 325 MG TABLET (FP) PO PRN ×2 (19:58)
[2021-10-22] MEDS ORDERED: MAG HYDROX/AL HYDROX/SIMETH 30 ML UNIT-DOSE CUP PO PRN (19:58)
[2021-10-22] MEDS ORDERED: MENTHOL/PHENOL 1 EACH UD MM PRN (19:58)
[2021-10-22] MEDS ORDERED: MAGNESIUM HYDROX 2400MG/30ML ORAL SUSPENSION 30 ML CUP PO PRN (19:58)
[2021-10-22] MEDS ORDERED: BISMUTH SUBSALICYLATE 524 MG/30 ML PO PRN (19:58)
[2021-10-22] MEDS ORDERED: MAGNESIUM CITRATE 300 ML BOTTLE PO PRN (19:58)
[2021-10-22] MEDS ORDERED: IBUPROFEN 400 MG TABLET (FP) PO PRN (19:58)
[2021-10-22] MEDS ORDERED: chlordiazePOXIDE HCL 25 MG CAPSULE PO PRN (20:02)
[2021-10-22] MEDS ORDERED: chlordiazePOXIDE HCL 25 MG CAPSULE ONE (23:16)
[2021-10-22] MEDS: chlordiazePOXIDE HCL 25 MG CAPSULE PO SCH (23:19)
[2021-10-22] MEDS: THIAMINE HCL 100 MG TABLET (FP) PO SCH (23:19)
[2021-10-23] MEDS ORDERED: diazePAM 5 MG TABLET PO SCH (06:00)
[2021-10-23] MEDS: chlordiazePOXIDE HCL 25 MG CAPSULE PO SCH ×2 (07:04→10:53)
[2021-10-23] MEDS: PRENATAL VITAMINS W/ FOLIC ACID TABLET (FP) PO SCH (10:53)
[2021-10-23 11:20] LABS: HEMATOCRIT 37.2 % (35.4-49); HEMOGLOBIN 12.1 GM/dL (11.7-16.9); MCH 27.1 pg (25.7-33.7); MCHC 32.4 g/dl (32.0-35.9); MEAN CELL VOLUME 83.5 fl (80-96); MEAN PLT VOLUME 9.2 fl (7.5-11.1); PLATELET COUNT 99 10^3/uL (134-434); RBC 4.45 M/mm3 (4.00-5.60); RDW 12.8 % (11.9-15.9); WHITE BLOOD COUNT 8.7 K/mm3 (4.0-10.0)
[2021-10-23] MEDS ORDERED: BUPRENORPHINE HCL 150 MCG, BUPRENORPHINE HCL 75 MCG BC ONE (11:31)
[2021-10-23] MEDS ORDERED: cloNIDine HCL 0.1 MG TABLET PO ONE (11:31)
[2021-10-23] MEDS ORDERED: BUPRENORPHINE HCL 150 MCG FILM BC ONE (11:45)
[2021-10-23] MEDS ORDERED: BUPRENORPHINE HCL 75 MCG FILM BC ONE (11:46)
[2021-10-23 11:53] LABS: CALCIUM 7.9 mg/dL (8.5-10.1)
[2021-10-23 11:54] LABS: ALBUMIN 2.7 g/dl (3.4-5.0); BLOOD UREA NITROGEN 7.8 mg/dL (7-18)
[2021-10-23 11:57] LABS: CREATININE 0.8 mg/dL (0.55-1.3)
[2021-10-23 11:58] LABS: BILIRUBIN,TOTAL 4.2 mg/dL (0.2-1)
[2021-10-23 12:34] LABS: HIV INTERPRETATION NEGATIVE (NEGATIVE)
[2021-10-23] MEDS ORDERED: cloNIDine HCL 0.1 MG TABLET PO PRN (15:31)
[2021-10-23] MEDS: diazePAM 5 MG TABLET PO PRN ×2 (17:57→23:16)
[2021-10-23] MEDS: hydrOXYzine PAMOATE 25 MG CAPSULE (FP) PO PRN (17:57)
[2021-10-23] MEDS: METHOCARBAMOL 500 MG TABLET PO PRN (17:58)
[2021-10-23] MEDS: THIAMINE HCL 100 MG TABLET (FP) PO SCH (23:17)
[2021-10-23] MEDS: MELATONIN 5 MG TABLETS PO PRN (23:17)
[2021-10-23] MEDS: QUEtiapine FUMARATE 50 MG TABLET PO SCH (23:17)
[2021-10-24] MEDS ORDERED: chlordiazePOXIDE HCL 25 MG CAPSULE PO SCH (05:00)
[2021-10-24] MEDS ORDERED: BUPRENORPHINE HCL 150 MCG FILM BC ONE (05:06)
[2021-10-24] MEDS ORDERED: BUPRENORPHINE HCL 75 MCG FILM BC ONE (05:07)
[2021-10-24] MEDS ORDERED: BUPRENORPHINE HCL 150 MCG, BUPRENORPHINE HCL 75 MCG BC SCH (06:00)
[2021-10-24] MEDS ORDERED: BUPRENORPHINE/NALOXONE 2 MG/0.5 MG FILM PACKET SL ONE ×5 (09:45→22:00)
[2021-10-24] MEDS: diazePAM 5 MG TABLET PO PRN (10:29)
[2021-10-24] MEDS: PRENATAL VITAMINS W/ FOLIC ACID TABLET (FP) PO SCH (10:30)
[2021-10-24] MEDS: METHOCARBAMOL 500 MG TABLET PO PRN ×2 (10:30→22:41)
[2021-10-24 11:09] LABS: SARS-CoV-2 NAA Not Detected (Not Detected)
[2021-10-24 11:09] LABS: SARS-CoV-2 NAA Not Detected (Not Detected)
[2021-10-24] MEDS: diazePAM 5 MG TABLET PO SCH ×3 (14:06→22:38)
[2021-10-24] MEDS: MELATONIN 5 MG TABLETS PO PRN (22:38)
[2021-10-24] MEDS: QUEtiapine FUMARATE 50 MG TABLET PO SCH (22:38)
[2021-10-24] MEDS: THIAMINE HCL 100 MG TABLET (FP) PO SCH (22:38)
[2021-10-24] MEDS: hydrOXYzine PAMOATE 25 MG CAPSULE (FP) PO PRN (22:39)
[2021-10-25] MEDS ORDERED: chlordiazePOXIDE HCL 10 MG CAPSULE PO PRN
[2021-10-25] MEDS ORDERED: chlordiazePOXIDE HCL 10 MG CAPSULE PO SCH (05:00)
[2021-10-25] MEDS ORDERED: BUPRENORPHINE HCL 450 MCG FILM BC SCH (06:00)
[2021-10-25] MEDS: diazePAM 5 MG TABLET PO PRN ×3 (10:23→22:52)
[2021-10-25] MEDS: PRENATAL VITAMINS W/ FOLIC ACID TABLET (FP) PO SCH (10:24)
[2021-10-25] MEDS: BUPRENORPHINE/NALOXONE 4 MG/1 MG FILM PACKET SL SCH ×2 (11:47→21:46)
[2021-10-25] MEDS: hydrOXYzine PAMOATE 25 MG CAPSULE (FP) PO PRN ×2 (18:27→21:44)
[2021-10-25] MEDS: METHOCARBAMOL 500 MG TABLET PO PRN (18:28)
[2021-10-25] MEDS: THIAMINE HCL 100 MG TABLET (FP) PO SCH (21:45)
[2021-10-25] MEDS: MELATONIN 5 MG TABLETS PO PRN (21:45)
[2021-10-25] MEDS: QUEtiapine FUMARATE 50 MG TABLET PO SCH (21:45)
[2021-10-26] MEDS ORDERED: chlordiazePOXIDE HCL 10 MG CAPSULE PO SCH (05:00)
[2021-10-26] MEDS ORDERED: BUPRENORPHINE/NALOXONE 4 MG/1 MG FILM PACKET SL SCH (06:00)
[2021-10-26] MEDS: BUPRENORPHINE/NALOXONE 8 MG/2 MG FILM PACKET SL ONE ×2 (08:06→08:59)
[2021-10-26] MEDS: diazePAM 5 MG TABLET PO SCH ×2 (10:55→22:20)
[2021-10-26] MEDS: PRENATAL VITAMINS W/ FOLIC ACID TABLET (FP) PO SCH (10:55)
[2021-10-26 13:07] VITALS: BP 104/61; PULSE 85; TEMP 98.4
[2021-10-26 14:32] LABS: BLOOD UREA NITROGEN 13.1 mg/dL (7-18); CALCIUM 8.3 mg/dL (8.5-10.1)
[2021-10-26 14:33] LABS: ALBUMIN 2.4 g/dl (3.4-5.0)
[2021-10-26 14:36] LABS: CREATININE 0.8 mg/dL (0.55-1.3)
[2021-10-26 14:37] LABS: BILIRUBIN,TOTAL 8.3 mg/dL (0.2-1)
[2021-10-26 14:45] LABS: BASO % 1.3 % (0-2.0); EOS % 2.4 % (0-4.5); HEMATOCRIT 38.7 % (35.4-49); HEMOGLOBIN 12.9 GM/dL (11.7-16.9); LYMPH % 42.3 % (8-40); MCH 27.6 pg (25.7-33.7); MCHC 33.4 g/dl (32.0-35.9); MEAN CELL VOLUME 82.5 fl (80-96); MEAN PLT VOLUME 9.3 fl (7.5-11.1); MONO % 15.6 % (3.8-10.2); NEUT % 38.4 % (42.8-82.8); RBC 4.69 M/mm3 (4.00-5.60); RDW 13.9 % (11.9-15.9); WHITE BLOOD COUNT 6.5 K/mm3 (4.0-10.0)
[2021-10-26 15:52] LABS: ANISOCYTOSIS 1+; MACROCYTOSIS 0; OVALOCYTE 2+
[2021-10-26] MEDS: QUEtiapine FUMARATE 50 MG TABLET PO SCH (22:20)
[2021-10-26] MEDS: THIAMINE HCL 100 MG TABLET (FP) PO SCH (22:20)
[2021-10-27] MEDS ORDERED: chlordiazePOXIDE HCL 10 MG CAPSULE PO ONE (05:00)
[2021-10-27] MEDS ORDERED: BUPRENORPHINE/NALOXONE 8 MG/2 MG FILM PACKET SL ONE (06:00)
[2021-10-27] MEDS ORDERED: BUPRENORPHINE/NALOXONE 8 MG/2 MG FILM PACKET SL SCH (10:00)
[2021-10-28] MEDS ORDERED: diazePAM 5 MG TABLET PO SCH (10:00)
== END 2021-10-26 23:09 | disposition short-term general hospital (02) | DRG 773 ==
LOC: YASAS 16:37 → Y3N 23:03
PROVIDERS: ADMIT Allergy & Immunology; ATTEND Allergy & Immunology
PROC: HZ2ZZZZ Detoxification Services for Substance Abuse Treatment (ICD-10-PCS; principal; 2021-10-22)
DX: F11.23 Opioid dependence with withdrawal (principal); F13.230 Sedative, hypnotic or anxiolytic dependence with withdrawal, uncomplicated; F10.20 Alcohol dependence, uncomplicated; F14.20 Cocaine dependence, uncomplicated; F17.210 Nicotine dependence, cigarettes, uncomplicated; F19.24 Other psychoactive substance dependence with psychoactive substance-induced mood disorder; F41.9 Anxiety disorder, unspecified; D69.6 Thrombocytopenia, unspecified; B19.20 Unspecified viral hepatitis C without hepatic coma; E87.6 Hypokalemia; R10.9 Unspecified abdominal pain; R11.2 Nausea with vomiting, unspecified; R74.8 Abnormal levels of other serum enzymes; Z59.00 Homelessness unspecified; Z56.0 Unemployment, unspecified; Z91.19 Patient's noncompliance with other medical treatment and regimen
CPT/HCPCS: 36415; 80053; 82140; 85025; 85027; 86780; 87389; 87811; C9803; J0735; U0003; U0005

== ENCOUNTER 2021-10-26 12:58 | Inpatient (IN) | payer OTHER ==
[2021-10-26] MEDS ORDERED: ONDANSETRON 4 MG/2 ML VIAL IVPUSH ONE (13:49)
[2021-10-26] MEDS ORDERED: morphine CARPU-JECT 4 MG/1 ML DISP.SYRIN IVPUSH ONE (14:15)
[2021-10-26] MEDS ORDERED: morphine SULFATE 4 MG/ML VIAL ONE (14:17)
[2021-10-26] MEDS ORDERED: ONDANSETRON 4 MG/2 ML VIAL ONE (14:20)
[2021-10-26 14:57] LABS: HEMATOCRIT 37.6 % (35.4-49); HEMOGLOBIN 12.4 GM/dL (11.7-16.9); MCH 27.3 pg (25.7-33.7); MCHC 33.1 g/dl (32.0-35.9); MEAN CELL VOLUME 82.4 fl (80-96); RBC 4.56 M/mm3 (4.00-5.60); RDW 14.1 % (11.9-15.9); WHITE BLOOD COUNT 5.2 K/mm3 (4.0-10.0)
[2021-10-26 15:10] LABS: ACTIVATED PTT 30.8 SECONDS (25.2-36.5); INR 1.28 (0.83-1.09); PROTHROMBIN TIME (PATIENT) 14.7 SEC (9.7-13.0)
[2021-10-26 16:27] LABS: ANISOCYTOSIS 1+; MACROCYTOSIS 1+
[2021-10-26 16:37] LABS: ALBUMIN 2.6 g/dl (3.4-5.0); BLOOD UREA NITROGEN 12.9 mg/dL (7-18); CALCIUM 8.6 mg/dL (8.5-10.1); MEAN PLT VOLUME 8.8 fl (7.5-11.1)
[2021-10-26 16:40] LABS: BILIRUBIN,DIRECT 7.8 mg/dL (0.0-0.2); CREATININE 0.9 mg/dL (0.55-1.3)
[2021-10-26 16:42] LABS: BILIRUBIN,TOTAL 9.5 mg/dL (0.2-1)
[2021-10-26] MEDS ORDERED: FOLIC ACID INJECTION - 1 MG, THIAMINE HCL 100 MG, MULTIVIT INJECTION ADULT 10 ML in SOD... IVPB ONE (17:36)
[2021-10-26 18:05] LABS: EPI CELLS 2 /uL (0-25.1); HYALINE CASTS 3 /uL (0-3.1); URINE APPEARANCE CLEAR; URINE BILIRUBIN 3+ (NEGATIVE); URINE COLOR DK YELLOW; URINE GLUCOSE (UA) NEGATIVE (NEGATIVE); URINE KETONE NEGATIVE (NEGATIVE); URINE LEUK ESTERASE TRACE (NEGATIVE); URINE NITRITE POSITIVE (NEGATIVE); URINE PROTEIN TRACE (NEGATIVE); URINE RBC 10 /uL (0-23.9); URINE UROBILINOGEN 4.0 E.U/dl mg/dL (0.2-1.0); URINE WBC 8 /uL (0-25.8)
[2021-10-26 18:43] LABS: URINE BACTERIA 1 /uL (0-1359)
[2021-10-26] MEDS ORDERED: diazePAM 5 MG TABLET ONE (20:30)
[2021-10-26] MEDS: diazePAM 5 MG TABLET PO SCH (20:33)
[2021-10-26] MEDS ORDERED: morphine CARPU-JECT 2 MG/1 ML DISP.SYRIN IVPUSH ONE (21:09)
[2021-10-26] MEDS ORDERED: GABAPENTIN 300 MG CAPSULE PO ONE (21:14)
[2021-10-26] MEDS ORDERED: traZODone HCL 50 MG TABLET (FP) PO ONE (21:17)
[2021-10-26] MEDS: NICOTINE 14 MG/24 HOURS TOPICAL PATCH TD SCH (21:46)
[2021-10-26] MEDS ORDERED: diazePAM CARPU-JECT 10 MG/2 ML DISP.SYRIN IVPUSH ONE (23:23)
[2021-10-26] MEDS ORDERED: P-EPHED 60MG/TRIPROLIDI 2.5MG TABLET PO PRN (23:51)
[2021-10-27] MEDS ORDERED: diazePAM CARPU-JECT 10 MG/2 ML DISP.SYRIN ONE (01:06)
[2021-10-27] MEDS ORDERED: MELATONIN 5 MG TABLETS ONE (01:07)
[2021-10-27] MEDS ORDERED: IBUPROFEN 400 MG TABLET (FP) PO ONE (01:07)
[2021-10-27] MEDS: IBUPROFEN 400 MG TABLET (FP) PO PRN ×3 (01:13→20:30)
[2021-10-27] MEDS: MELATONIN 5 MG TABLETS PO PRN ×3 (01:13→20:32)
[2021-10-27] MEDS: cloNIDine HCL 0.1 MG TABLET PO PRN (03:11)
[2021-10-27] MEDS ORDERED: WATER IVPB ONE ×2 (05:30→10:30)
[2021-10-27] MEDS ORDERED: ACETYLCYSTEINE IVPB ONE ×2 (05:30→10:30)
[2021-10-27] MEDS ORDERED: DEXTROSE 5% IVPB ONE ×2 (05:30→10:30)
[2021-10-27] MEDS ORDERED: ACETYLCYSTEINE INJECTION 20% 2,900 MG in DEXTROSE 5%-WATER - 500 ML IVPB ONE (06:30)
[2021-10-27 07:55] LABS: HEMATOCRIT 33.7 % (35.4-49); HEMOGLOBIN 11.1 GM/dL (11.7-16.9); MCH 27.3 pg (25.7-33.7); MEAN CELL VOLUME 82.8 fl (80-96); MEAN PLT VOLUME 8.9 fl (7.5-11.1); RBC 4.07 M/mm3 (4.00-5.60); RDW 13.9 % (11.9-15.9); WHITE BLOOD COUNT 5.1 K/mm3 (4.0-10.0)
[2021-10-27 08:06] LABS: INR 1.41 (0.83-1.09); PROTHROMBIN TIME (PATIENT) 16.3 SEC (9.7-13.0)
[2021-10-27 08:27] LABS: MAGNESIUM 1.8 mg/dL (1.8-2.4)
[2021-10-27 08:29] LABS: CREATININE 0.9 mg/dL (0.55-1.3); PHOSPHOROUS 4.3 mg/dL (2.5-4.9)
[2021-10-27 08:32] LABS: BILIRUBIN,TOTAL 9.9 mg/dL (0.2-1); TOT PROT 6.1 g/dl (6.4-8.2)
[2021-10-27 08:47] LABS: ALBUMIN 1.9 g/dl (3.4-5.0)
[2021-10-27] MEDS: diazePAM 5 MG TABLET PO SCH (09:41)
[2021-10-27] MEDS: NICOTINE 14 MG/24 HOURS TOPICAL PATCH TD SCH (09:43)
[2021-10-27] MEDS: BUPRENORPHINE/NALOXONE 8 MG/2 MG FILM PACKET SL SCH (09:43)
[2021-10-27] MEDS ORDERED: BUPRENORPHINE/NALOXONE 8 MG/2 MG FILM PACKET SL SCH (10:00)
[2021-10-27 10:45] LABS: ANISOCYTOSIS 0; HELMET CELLS 0; HOWELL-JOLLY BODIES 0; MACROCYTOSIS 0; OVALOCYTE 0; ROULEAU 0; SICKELED CELLS 0; TARGET CELLS 0; TEAR DROP CELLS 0; TOXIC GRANULATION 0
[2021-10-27 14:10] LABS: HIV INTERPRETATION NEGATIVE (NEGATIVE)
[2021-10-27] MEDS ORDERED: hydrOXYzine PAMOATE 25 MG CAPSULE (FP) PO ONE (20:47)
[2021-10-27] MEDS: POLYETHYLENE GLYCOL (HEALTHYLAX) 3350 17 GM PACKET PO SCH (21:45)
[2021-10-28] MEDS ORDERED: traZODone HCL 50 MG TABLET (FP) PO ONE ×2 (00:54→21:07)
[2021-10-28] MEDS ORDERED: SODIUM CHLORIDE 1,000 ML IV STA (06:06)
[2021-10-28 09:11] LABS: BASO % 1.1 % (0-2.0); EOS % 2.8 % (0-4.5); HEMATOCRIT 33.5 % (35.4-49); HEMOGLOBIN 10.9 GM/dL (11.7-16.9); LYMPH % 50.7 % (8-40); MCH 27.2 pg (25.7-33.7); MCHC 32.6 g/dl (32.0-35.9); MEAN CELL VOLUME 83.5 fl (80-96); MEAN PLT VOLUME 9.6 fl (7.5-11.1); MONO % 12.3 % (3.8-10.2); NEUT % 33.1 % (42.8-82.8); PLATELET COUNT 132 10^3/uL (134-434); RBC 4.01 M/mm3 (4.00-5.60); RDW 14.4 % (11.9-15.9); WHITE BLOOD COUNT 7.8 K/mm3 (4.0-10.0)
[2021-10-28 09:21] LABS: INR 1.24 (0.83-1.09); PROTHROMBIN TIME (PATIENT) 14.3 SEC (9.7-13.0)
[2021-10-28] MEDS ORDERED: LACTATED RINGERS SOLUTION 1,000 ML/1,000 ML INFUS.BAG IV STA (09:22)
[2021-10-28 09:30] LABS: CHLORIDE 108 mmol/L (98-107); SODIUM 141 mmol/L (136-145)
[2021-10-28] MEDS: IBUPROFEN 400 MG TABLET (FP) PO PRN ×3 (09:33→21:43)
[2021-10-28] MEDS: diazePAM 5 MG TABLET PO SCH (09:33)
[2021-10-28 09:34] LABS: CALCIUM 8.3 mg/dL (8.5-10.1)
[2021-10-28] MEDS: BUPRENORPHINE/NALOXONE 8 MG/2 MG FILM PACKET SL SCH (09:34)
[2021-10-28] MEDS: POLYETHYLENE GLYCOL (HEALTHYLAX) 3350 17 GM PACKET PO SCH (09:34)
[2021-10-28] MEDS: NICOTINE 14 MG/24 HOURS TOPICAL PATCH TD SCH (09:34)
[2021-10-28 09:36] LABS: ALBUMIN 2.2 g/dl (3.4-5.0); ANION GAP 4 MMOL/L (8-16); BLOOD UREA NITROGEN 14.3 mg/dL (7-18); CO2 29 mmol/L (21-32); GLUCOSE,RANDOM 102 mg/dL (74-106)
[2021-10-28 09:38] LABS: TOT PROT 6.2 g/dl (6.4-8.2)
[2021-10-28 09:40] LABS: ALK PHOS 214 U/L (45-117)
[2021-10-28 09:46] LABS: BILIRUBIN,DIRECT 17.7 mg/dL (0.0-0.2); SGOT/AST 1146 U/L (15-37); SGPT/ALT 1909 U/L (13-61)
[2021-10-28] MEDS ORDERED: predniSONE 20 MG TABLET (UD) PO SCH (10:00)
[2021-10-28 11:22] LABS: ANISOCYTOSIS 0; MACROCYTOSIS 0
[2021-10-28] MEDS: cloNIDine HCL 0.1 MG TABLET PO PRN (15:39)
[2021-10-28] MEDS ORDERED: diazePAM 5 MG TABLET PO ONE (21:07)
[2021-10-29] MEDS: diazePAM 5 MG TABLET PO SCH (10:22)
[2021-10-29] MEDS: POLYETHYLENE GLYCOL (HEALTHYLAX) 3350 17 GM PACKET PO SCH (10:22)
[2021-10-29] MEDS: BUPRENORPHINE/NALOXONE 8 MG/2 MG FILM PACKET SL SCH (10:24)
[2021-10-29] MEDS: NICOTINE 14 MG/24 HOURS TOPICAL PATCH TD SCH (10:25)
[2021-10-29 10:36] LABS: BASO % 0.5 % (0-2.0); EOS % 0.7 % (0-4.5); HEMATOCRIT 28.2 % (35.4-49); HEMOGLOBIN 9.6 GM/dL (11.7-16.9); LYMPH % 38.6 % (8-40); MCH 28.6 pg (25.7-33.7); MCHC 34.2 g/dl (32.0-35.9); MEAN CELL VOLUME 83.8 fl (80-96); MEAN PLT VOLUME 8.8 fl (7.5-11.1); MONO % 8.8 % (3.8-10.2); NEUT % 51.4 % (42.8-82.8); PLATELET COUNT 201 10^3/uL (134-434); RBC 3.37 M/mm3 (4.00-5.60); RDW 14.5 % (11.9-15.9)
[2021-10-29 10:42] LABS: INR 1.19 (0.83-1.09); PROTHROMBIN TIME (PATIENT) 13.7 SEC (9.7-13.0)
[2021-10-29 10:44] LABS: ACTIVATED PTT 26.8 SECONDS (25.2-36.5)
[2021-10-29] MEDS ORDERED: LORazepam 2 MG TABLET PO PRN (10:49)
[2021-10-29 11:03] LABS: CHLORIDE 106 mmol/L (98-107); SODIUM 139 mmol/L (136-145)
[2021-10-29 11:05] LABS: CALCIUM 8.2 mg/dL (8.5-10.1)
[2021-10-29 11:06] LABS: ALBUMIN 2.1 g/dl (3.4-5.0); ANION GAP 6 MMOL/L (8-16); BLOOD UREA NITROGEN 18.5 mg/dL (7-18); CO2 27 mmol/L (21-32); GLUCOSE,RANDOM 129 mg/dL (74-106)
[2021-10-29 11:08] LABS: CREATININE 0.8 mg/dL (0.55-1.3); SGOT/AST 491 U/L (15-37)
[2021-10-29 11:11] LABS: TOT PROT 6.4 g/dl (6.4-8.2)
[2021-10-29 11:12] LABS: ALK PHOS 201 U/L (45-117)
[2021-10-29 11:19] LABS: BILIRUBIN,TOTAL 23.1 mg/dL (0.2-1); SGPT/ALT 1353 U/L (13-61)
[2021-10-29] MEDS: LORazepam 1 MG TABLET PO PRN ×2 (13:20→21:30)
[2021-10-29] MEDS ORDERED: DEXTROSE 5% IVPB ONE (14:00)
[2021-10-29] MEDS ORDERED: WATER IVPB ONE (14:00)
[2021-10-29] MEDS ORDERED: ACETYLCYSTEINE IVPB ONE (14:00)
[2021-10-29] MEDS: MELATONIN 5 MG TABLETS PO PRN (21:31)
[2021-10-30] MEDS: LORazepam 1 MG TABLET PO PRN ×4 (04:41→21:52)
[2021-10-30] MEDS ORDERED: GLYCERIN 1 RECTAL SUPPOSITORY, ADULT PR ONE (07:19)
[2021-10-30] MEDS ORDERED: DOCUSATE SODIUM 100 MG CAPSULE (FP) PO PRN (07:19)
[2021-10-30] MEDS: POLYETHYLENE GLYCOL (HEALTHYLAX) 3350 17 GM PACKET PO SCH ×2 (09:40→21:52)
[2021-10-30] MEDS: BUPRENORPHINE/NALOXONE 8 MG/2 MG FILM PACKET SL SCH (09:41)
[2021-10-30] MEDS: PANTOPRAZOLE 20 MG TABLET PO SCH (09:41)
[2021-10-30] MEDS: NICOTINE 14 MG/24 HOURS TOPICAL PATCH TD SCH (09:42)
[2021-10-30] MEDS ORDERED: prednisoLONE SODIUM PHOSPHATE 15 MG/5 ML ORAL SOLN BOTTLE PO SCH (10:00)
[2021-10-30] MEDS ORDERED: PrednisoLONE 15 MG/5 ML UNIT-DOSE CUP PO SCH (10:00)
[2021-10-30 10:25] LABS: BASO % 0.9 % (0-2.0); EOS % 2.7 % (0-4.5); HEMATOCRIT 30.1 % (35.4-49); LYMPH % 45.3 % (8-40); MCH 27.8 pg (25.7-33.7); MCHC 33.1 g/dl (32.0-35.9); MEAN CELL VOLUME 84.1 fl (80-96); MEAN PLT VOLUME 9.3 fl (7.5-11.1); MONO % 8.9 % (3.8-10.2); NEUT % 42.2 % (42.8-82.8); PLATELET COUNT 216 10^3/uL (134-434); RBC 3.58 M/mm3 (4.00-5.60); RDW 14.9 % (11.9-15.9); WHITE BLOOD COUNT 7.6 K/mm3 (4.0-10.0)
[2021-10-30 10:34] LABS: INR 1.17 (0.83-1.09); PROTHROMBIN TIME (PATIENT) 13.5 SEC (9.7-13.0)
[2021-10-30 10:37] LABS: ACTIVATED PTT 28.5 SECONDS (25.2-36.5)
[2021-10-30 10:47] LABS: ALBUMIN 2.4 g/dl (3.4-5.0); BLOOD UREA NITROGEN 13.2 mg/dL (7-18); CALCIUM 8.6 mg/dL (8.5-10.1)
[2021-10-30 10:50] LABS: CREATININE 0.7 mg/dL (0.55-1.3)
[2021-10-30 10:52] LABS: BILIRUBIN,TOTAL 7.4 mg/dL (0.2-1)
[2021-10-30] MEDS: cloNIDine HCL 0.1 MG TABLET PO PRN (16:33)
[2021-10-30] MEDS: MELATONIN 5 MG TABLETS PO PRN (21:53)
[2021-10-31] MEDS: LORazepam 1 MG TABLET PO PRN (05:15)
[2021-10-31] MEDS: POLYETHYLENE GLYCOL (HEALTHYLAX) 3350 17 GM PACKET PO SCH (05:15)
[2021-10-31 09:32] VITALS: BP 116/66; PULSE 100; TEMP 97.6
[2021-10-31] MEDS: BUPRENORPHINE/NALOXONE 8 MG/2 MG FILM PACKET SL SCH (09:44)
[2021-10-31] MEDS: PANTOPRAZOLE 20 MG TABLET PO SCH (09:44)
[2021-10-31] MEDS: NICOTINE 14 MG/24 HOURS TOPICAL PATCH TD SCH (09:44)
== END 2021-10-31 10:56 | disposition left against medical advice (07) | DRG 280 ==
LOC: JER 12:58 → JERBED 18:09 → J8W 10-27 01:31
PROVIDERS: ADMIT Hospitalist; ATTEND Internal Medicine
DX: K70.10 Alcoholic hepatitis without ascites (principal); R45.851 Suicidal ideations; F20.9 Schizophrenia, unspecified; F14.20 Cocaine dependence, uncomplicated; B16.9 Acute hepatitis B without delta-agent and without hepatic coma; F11.10 Opioid abuse, uncomplicated; F10.10 Alcohol abuse, uncomplicated; B18.2 Chronic viral hepatitis C; R79.89 Other specified abnormal findings of blood chemistry; R74.01 Elevation of levels of liver transaminase levels; Z53.29 Procedure and treatment not carried out because of patient's decision for other reasons; F32.A Depression, unspecified; F41.9 Anxiety disorder, unspecified; F17.210 Nicotine dependence, cigarettes, uncomplicated; Z59.00 Homelessness unspecified
CPT/HCPCS: 36415; 74177-TC; 76705-TC; 80048; 80053; 80076; 80307; 81003; 82140; 82248; 82550; 83516; 83605; 83690; 83735; 84100; 85025; 85032; 85610; 85730; 86038; 86705; 86708; 86709; 86803; 86850; 86900; 86901; 87040; 87086; 87340; 87389; 87516; 87517; 87522; 93005; 93010; 99285-25; J0735; Q9967

== ENCOUNTER 2021-10-31 13:00 | Inpatient (IN) | payer OTHER ==
[2021-10-31 14:22] LABS: BLOOD UREA NITROGEN 16.8 mg/dL (7-18); CALCIUM 9.4 mg/dL (8.5-10.1); MAGNESIUM 2.1 mg/dL (1.8-2.4)
[2021-10-31 14:25] LABS: CREATININE 0.8 mg/dL (0.55-1.3); PHOSPHOROUS 5.5 mg/dL (2.5-4.9)
[2021-10-31 14:27] LABS: BILIRUBIN,TOTAL 5.2 mg/dL (0.2-1)
[2021-10-31 14:48] LABS: ALBUMIN 3.2 g/dl (3.4-5.0); TOT PROT 9.1 g/dl (6.4-8.2)
[2021-10-31 14:48] LABS: ACTIVATED PTT 23.8 SECONDS (25.2-36.5); INR 1.03 (0.83-1.09); PROTHROMBIN TIME (PATIENT) 11.8 SEC (9.7-13.0)
[2021-10-31 15:25] LABS: BASO % 0.9 % (0-2.0); HEMATOCRIT 29.9 % (35.4-49); HEMOGLOBIN 9.6 GM/dL (11.7-16.9); LYMPH % 39.3 % (8-40); MCH 27.1 pg (25.7-33.7); MCHC 32.2 g/dl (32.0-35.9); MEAN CELL VOLUME 84.3 fl (80-96); MEAN PLT VOLUME 9.8 fl (7.5-11.1); MONO % 10.3 % (3.8-10.2); NEUT % 48.5 % (42.8-82.8); PLATELET COUNT 173 10^3/uL (134-434); RBC 3.55 M/mm3 (4.00-5.60); RDW 14.7 % (11.9-15.9)
[2021-10-31 17:12] LABS: COCAINE, UR NEGATIVE (NEGATIVE); METHADONE, UR NEGATIVE (NEGATIVE); OPIATES, URI NEGATIVE (NEGATIVE); PHENCYCLIDINE,URINE NEGATIVE (NEGATIVE); URINE BARBITURATES NEGATIVE (NEGATIVE)
[2021-10-31 17:13] LABS: URINE AMPHETAMINES NEGATIVE (NEGATIVE); URINE BENZODIAZEPINES POSITIVE (NEGATIVE)
[2021-10-31] MEDS ORDERED: LORazepam 2 MG TABLET PO PRN (21:02)
[2021-10-31] MEDS ORDERED: traMADol HCL 50 MG TABLET PO ONE (21:08)
[2021-10-31] MEDS ORDERED: THIAMINE HCL 100 MG TABLET (FP) ONE (21:30)
[2021-10-31] MEDS ORDERED: traMADol HCL 50 MG TABLET ONE (21:30)
[2021-10-31] MEDS ORDERED: QUEtiapine FUMARATE 100 MG TABLET (FP) ONE (21:31)
[2021-10-31] MEDS ORDERED: FOLIC ACID 1 MG TABLET (FP) ONE (21:31)
[2021-10-31] MEDS ORDERED: LORazepam 1 MG TABLET ONE (21:31)
[2021-10-31] MEDS: QUEtiapine FUMARATE 50 MG TABLET PO SCH (21:41)
[2021-10-31] MEDS: LORazepam 1 MG TABLET PO PRN (21:41)
[2021-10-31] MEDS: THIAMINE HCL 100 MG TABLET (FP) PO SCH (21:41)
[2021-10-31] MEDS: FOLIC ACID 1 MG TABLET (FP) PO SCH (21:41)
[2021-11-01] MEDS: LORazepam 1 MG TABLET PO PRN ×3 (05:54→15:42)
[2021-11-01 08:17] LABS: HEMATOCRIT 28.4 % (35.4-49); HEMOGLOBIN 9.2 GM/dL (11.7-16.9); MCH 27.3 pg (25.7-33.7); MCHC 32.3 g/dl (32.0-35.9); MEAN CELL VOLUME 84.5 fl (80-96); MEAN PLT VOLUME 9.8 fl (7.5-11.1); PLATELET COUNT 289 10^3/uL (134-434); RBC 3.36 M/mm3 (4.00-5.60); RDW 15.5 % (11.9-15.9)
[2021-11-01 08:21] LABS: INR 1.09 (0.83-1.09); PROTHROMBIN TIME (PATIENT) 12.6 SEC (9.7-13.0)
[2021-11-01 08:22] VITALS: BMI 22.1
[2021-11-01 08:23] LABS: ACTIVATED PTT 29.4 SECONDS (25.2-36.5)
[2021-11-01 08:31] LABS: CALCIUM 8.4 mg/dL (8.5-10.1)
[2021-11-01 08:32] LABS: MAGNESIUM 2.2 mg/dL (1.8-2.4)
[2021-11-01 08:34] LABS: BLOOD UREA NITROGEN 21.2 mg/dL (7-18)
[2021-11-01 08:35] LABS: CREATININE 0.7 mg/dL (0.55-1.3); PHOSPHOROUS 5.2 mg/dL (2.5-4.9)
[2021-11-01 08:36] LABS: BILIRUBIN,TOTAL 3.2 mg/dL (0.2-1)
[2021-11-01 08:38] LABS: ALBUMIN 2.4 g/dl (3.4-5.0)
[2021-11-01] MEDS ORDERED: IBUPROFEN 800 MG/8 ML IJ IVPB PRN (10:04)
[2021-11-01] MEDS ORDERED: BUPRENORPHINE/NALOXONE 8 MG/2 MG FILM PACKET SL PRN (10:06)
[2021-11-01] MEDS ORDERED: ACETAMINOPHEN 1000 MG/100 ML BAG IVPB ONE (10:15)
[2021-11-01] MEDS: FOLIC ACID 1 MG TABLET (FP) PO SCH (10:30)
[2021-11-01] MEDS: THIAMINE HCL 100 MG TABLET (FP) PO SCH (10:30)
[2021-11-01 10:48] LABS: ANISOCYTOSIS 1+; MACROCYTOSIS 1+; OVALOCYTE 2+
[2021-11-01] MEDS ORDERED: ACETAMINOPHEN 1000 MG/100 ML BAG IVPB PRN (13:05)
[2021-11-01] MEDS ORDERED: GABAPENTIN 300 MG CAPSULE PO ONE (17:21)
[2021-11-01] MEDS: hydrOXYzine PAMOATE 25 MG CAPSULE (FP) PO SCH ×2 (18:43→21:15)
[2021-11-01] MEDS: GABAPENTIN 300 MG CAPSULE PO SCH ×2 (18:43→21:16)
[2021-11-01] MEDS ORDERED: MELATONIN 5 MG TABLETS PO ONE (20:22)
[2021-11-01 21:09] LABS: SARS-CoV-2 NAA Not Detected (Not Detected)
[2021-11-01] MEDS ORDERED: QUEtiapine FUMARATE 25 MG TABLET ONE (21:10)
[2021-11-01] MEDS: DOCUSATE SODIUM 100 MG CAPSULE (FP) PO SCH (21:15)
[2021-11-01] MEDS: QUEtiapine FUMARATE 50 MG TABLET PO SCH (21:16)
[2021-11-02] MEDS ORDERED: BUPRENORPHINE/NALOXONE 8 MG/2 MG FILM PACKET ONE (08:52)
[2021-11-02] MEDS ORDERED: BUPRENORPHINE/NALOXONE 2 MG/0.5 MG FILM PACKET ONE (08:52)
[2021-11-02] MEDS: THIAMINE HCL 100 MG TABLET (FP) PO SCH (09:02)
[2021-11-02] MEDS: DOCUSATE SODIUM 100 MG CAPSULE (FP) PO SCH ×2 (09:02→21:36)
[2021-11-02] MEDS: FOLIC ACID 1 MG TABLET (FP) PO SCH (09:02)
[2021-11-02] MEDS: BUPRENORPHINE/NALOXONE 1 EACH, BUPRENORPHINE/NALOXONE 2 EACH SL SCH (09:02)
[2021-11-02] MEDS: hydrOXYzine PAMOATE 25 MG CAPSULE (FP) PO SCH (09:20)
[2021-11-02] MEDS: GABAPENTIN 300 MG CAPSULE PO SCH ×3 (09:49→21:35)
[2021-11-02] MEDS ORDERED: BUPRENORPHINE/NALOXONE 8 MG/2 MG FILM PACKET SL SCH (10:00)
[2021-11-02] MEDS ORDERED: BUPRENORPHINE/NALOXONE 12 MG-3 MG SL FILM PACKET SL SCH (10:00)
[2021-11-02] MEDS ORDERED: BUPRENORPHINE/NALOXONE 1 EACH, BUPRENORPHINE/NALOXONE 2 EACH SL SCH (10:00)
[2021-11-02] MEDS ORDERED: BUPRENORPHINE/NALOXONE 2 MG/0.5 MG FILM PACKET SL SCH (10:00)
[2021-11-02] MEDS ORDERED: BUPRENORPHINE/NALOXONE 4 MG/1 MG FILM PACKET SL SCH (10:00)
[2021-11-02] MEDS ORDERED: BISACODYL 5 MG TABLET.DR (FP) PO ONE ×2 (11:14→11:17)
[2021-11-02 11:52] LABS: HEMATOCRIT 30.6 % (35.4-49); HEMOGLOBIN 10.3 GM/dL (11.7-16.9); MCH 28.2 pg (25.7-33.7); MCHC 33.7 g/dl (32.0-35.9); MEAN CELL VOLUME 83.8 fl (80-96); MEAN PLT VOLUME 8.4 fl (7.5-11.1); PLATELET COUNT 389 10^3/uL (134-434); RBC 3.66 M/mm3 (4.00-5.60); RDW 15.4 % (11.9-15.9); WHITE BLOOD COUNT 6.8 K/mm3 (4.0-10.0)
[2021-11-02 12:05] LABS: INR 1.06 (0.83-1.09); PROTHROMBIN TIME (PATIENT) 12.2 SEC (9.7-13.0)
[2021-11-02 12:07] LABS: ACTIVATED PTT 31.3 SECONDS (25.2-36.5)
[2021-11-02 12:24] LABS: BLOOD UREA NITROGEN 16.6 mg/dL (7-18); CALCIUM 9.2 mg/dL (8.5-10.1)
[2021-11-02 12:25] LABS: ALBUMIN 2.9 g/dl (3.4-5.0)
[2021-11-02 12:27] LABS: CREATININE 0.7 mg/dL (0.55-1.3)
[2021-11-02 12:29] LABS: BILIRUBIN,TOTAL 2.9 mg/dL (0.2-1)
[2021-11-02 12:30] LABS: TOT PROT 7.7 g/dl (6.4-8.2)
[2021-11-02] MEDS ORDERED: hydrOXYzine PAMOATE 25 MG CAPSULE (FP) PO SCH (14:44)
[2021-11-02] MEDS: cloNIDine HCL 0.1 MG TABLET PO PRN (18:18)
[2021-11-02] MEDS: hydrOXYzine PAMOATE 25 MG CAPSULE (FP) PO PRN (18:18)
[2021-11-02] MEDS ORDERED: QUEtiapine FUMARATE 25 MG TABLET ONE (21:33)
[2021-11-02] MEDS: QUEtiapine FUMARATE 50 MG TABLET PO SCH (21:36)
[2021-11-02] MEDS: POLYETHYLENE GLYCOL (HEALTHYLAX) 3350 17 GM PACKET PO SCH (21:36)
[2021-11-02] MEDS ORDERED: GABAPENTIN 300 MG CAPSULE PO SCH (22:00)
[2021-11-03] MEDS: cloNIDine HCL 0.1 MG TABLET PO PRN (02:43)
[2021-11-03] MEDS: GABAPENTIN 300 MG CAPSULE PO SCH ×3 (05:25→21:28)
[2021-11-03] MEDS: hydrOXYzine PAMOATE 25 MG CAPSULE (FP) PO PRN ×2 (05:28→12:29)
[2021-11-03] MEDS ORDERED: BUPRENORPHINE/NALOXONE 8 MG/2 MG FILM PACKET ONE (09:07)
[2021-11-03] MEDS ORDERED: BUPRENORPHINE/NALOXONE 2 MG/0.5 MG FILM PACKET ONE (09:08)
[2021-11-03] MEDS: DOCUSATE SODIUM 100 MG CAPSULE (FP) PO SCH ×2 (09:16→21:27)
[2021-11-03] MEDS: FOLIC ACID 1 MG TABLET (FP) PO SCH (09:16)
[2021-11-03] MEDS: THIAMINE HCL 100 MG TABLET (FP) PO SCH (09:16)
[2021-11-03] MEDS: POLYETHYLENE GLYCOL (HEALTHYLAX) 3350 17 GM PACKET PO SCH ×2 (09:16→21:27)
[2021-11-03] MEDS: BUPRENORPHINE/NALOXONE 1 EACH, BUPRENORPHINE/NALOXONE 2 EACH SL SCH (09:17)
[2021-11-03 09:20] LABS: INR 1.04 (0.83-1.09)
[2021-11-03 09:22] LABS: ACTIVATED PTT 30.5 SECONDS (25.2-36.5)
[2021-11-03 09:43] LABS: CALCIUM 9.3 mg/dL (8.5-10.1)
[2021-11-03 09:44] LABS: BLOOD UREA NITROGEN 24.8 mg/dL (7-18)
[2021-11-03 09:46] LABS: CREATININE 0.7 mg/dL (0.55-1.3); PHOSPHOROUS 4.7 mg/dL (2.5-4.9)
[2021-11-03 09:48] LABS: TOT PROT 7.8 g/dl (6.4-8.2)
[2021-11-03] MEDS ORDERED: QUEtiapine FUMARATE 25 MG TABLET ONE (21:00)
[2021-11-03] MEDS: QUEtiapine FUMARATE 50 MG TABLET PO SCH (21:27)
[2021-11-04] MEDS: GABAPENTIN 300 MG CAPSULE PO SCH ×3 (05:47→21:24)
[2021-11-04] MEDS ORDERED: BUPRENORPHINE/NALOXONE 2 MG/0.5 MG FILM PACKET ONE (09:09)
[2021-11-04] MEDS ORDERED: BUPRENORPHINE/NALOXONE 8 MG/2 MG FILM PACKET ONE (09:09)
[2021-11-04] MEDS: POLYETHYLENE GLYCOL (HEALTHYLAX) 3350 17 GM PACKET PO SCH ×2 (09:14→21:24)
[2021-11-04] MEDS: DOCUSATE SODIUM 100 MG CAPSULE (FP) PO SCH ×2 (09:14→21:24)
[2021-11-04] MEDS: THIAMINE HCL 100 MG TABLET (FP) PO SCH (09:14)
[2021-11-04] MEDS: FOLIC ACID 1 MG TABLET (FP) PO SCH (09:14)
[2021-11-04] MEDS: BUPRENORPHINE/NALOXONE 1 EACH, BUPRENORPHINE/NALOXONE 2 EACH SL SCH (09:14)
[2021-11-04 10:00] LABS: PROTHROMBIN TIME (PATIENT) 11.5 SEC (9.7-13.0)
[2021-11-04 10:03] LABS: ACTIVATED PTT 30.4 SECONDS (25.2-36.5)
[2021-11-04 10:05] LABS: CALCIUM 9.2 mg/dL (8.5-10.1)
[2021-11-04 10:06] LABS: BLOOD UREA NITROGEN 18.7 mg/dL (7-18)
[2021-11-04 10:08] LABS: PHOSPHOROUS 3.9 mg/dL (2.5-4.9)
[2021-11-04 10:09] LABS: CREATININE 0.7 mg/dL (0.55-1.3)
[2021-11-04 10:10] LABS: BILIRUBIN,TOTAL 2.6 mg/dL (0.2-1); TOT PROT 7.7 g/dl (6.4-8.2)
[2021-11-04 10:49] LABS: HEMATOCRIT 29.9 % (35.4-49); MCH 28.4 pg (25.7-33.7); MCHC 33.4 g/dl (32.0-35.9); MEAN CELL VOLUME 84.9 fl (80-96); MEAN PLT VOLUME 8.2 fl (7.5-11.1); PLATELET COUNT 368 10^3/uL (134-434); RBC 3.53 M/mm3 (4.00-5.60); RDW 15.8 % (11.9-15.9); WHITE BLOOD COUNT 5.4 K/mm3 (4.0-10.0)
[2021-11-04] MEDS: cloNIDine HCL 0.1 MG TABLET PO PRN (17:36)
[2021-11-04] MEDS ORDERED: QUEtiapine FUMARATE 25 MG TABLET ONE (20:57)
[2021-11-04] MEDS: QUEtiapine FUMARATE 50 MG TABLET PO SCH (21:24)
[2021-11-05] MEDS: GABAPENTIN 300 MG CAPSULE PO SCH ×2 (06:13→13:28)
[2021-11-05] MEDS ORDERED: BUPRENORPHINE/NALOXONE 2 MG/0.5 MG FILM PACKET ONE (09:34)
[2021-11-05] MEDS ORDERED: BUPRENORPHINE/NALOXONE 8 MG/2 MG FILM PACKET ONE (09:34)
[2021-11-05] MEDS: THIAMINE HCL 100 MG TABLET (FP) PO SCH (09:45)
[2021-11-05] MEDS: DOCUSATE SODIUM 100 MG CAPSULE (FP) PO SCH (09:46)
[2021-11-05] MEDS: FOLIC ACID 1 MG TABLET (FP) PO SCH (09:46)
[2021-11-05] MEDS: POLYETHYLENE GLYCOL (HEALTHYLAX) 3350 17 GM PACKET PO SCH (09:46)
[2021-11-05] MEDS: BUPRENORPHINE/NALOXONE 1 EACH, BUPRENORPHINE/NALOXONE 2 EACH SL SCH (09:46)
[2021-11-05 09:49] VITALS: BP 117/76; PULSE 99; TEMP 98.1
== END 2021-11-05 13:58 | disposition home or self-care (01) | DRG 280 ==
LOC: JER 13:00 → JERBED 15:43 → J5S 11-01 04:51
PROVIDERS: ADMIT Internal Medicine; ATTEND Internal Medicine
DX: K70.10 Alcoholic hepatitis without ascites (principal); F20.9 Schizophrenia, unspecified; B18.2 Chronic viral hepatitis C; D64.9 Anemia, unspecified; K72.00 Acute and subacute hepatic failure without coma; R94.31 Abnormal electrocardiogram [ECG] [EKG]; F41.9 Anxiety disorder, unspecified; G89.29 Other chronic pain; F14.10 Cocaine abuse, uncomplicated; F11.10 Opioid abuse, uncomplicated; F10.10 Alcohol abuse, uncomplicated; R79.89 Other specified abnormal findings of blood chemistry; K59.00 Constipation, unspecified; R16.0 Hepatomegaly, not elsewhere classified
CPT/HCPCS: 36415; 71045-TC-FY; 74177-TC; 80053; 80307; 82140; 82962; 83735; 84100; 84439; 84443; 85025; 85027; 85610; 85730; 93005; 93010; 99285-25; C9803-CS; J0735; Q9967; U0003; U0005

== ENCOUNTER 2022-03-06 10:23 | Inpatient (IN) | payer OTHER ==
[2022-03-06 11:34] VITALS: BMI 19.1
[2022-03-06] MEDS ORDERED: BENZOCAINE/MENTHOL (CHLORASEPTIC ) LOZENGE MM PRN (13:46)
[2022-03-06] MEDS ORDERED: MAG HYDROX/AL HYDROX/SIMETH 30 ML UNIT-DOSE CUP PO PRN (13:46)
[2022-03-06] MEDS ORDERED: diazePAM 5 MG TABLET PO PRN (13:46)
[2022-03-06] MEDS ORDERED: ACETAMINOPHEN 325 MG TABLET (FP) PO PRN ×2 (13:46)
[2022-03-06] MEDS ORDERED: BUPRENORPHINE HCL 150 MCG, BUPRENORPHINE HCL 75 MCG BC ONE (13:46)
[2022-03-06] MEDS ORDERED: cloNIDine HCL 0.1 MG TABLET PO ONE (13:46)
[2022-03-06] MEDS ORDERED: BUPRENORPHINE HCL 150 MCG, BUPRENORPHINE HCL 75 MCG BC PRN (13:46)
[2022-03-06] MEDS ORDERED: ONDANSETRON *ODT* 4 MG TABLET SL PRN (13:46)
[2022-03-06] MEDS ORDERED: MAGNESIUM CITRATE 300 ML BOTTLE PO PRN (13:46)
[2022-03-06] MEDS ORDERED: LOPERAMIDE HCL 2 MG CAPSULE PO PRN (13:46)
[2022-03-06] MEDS ORDERED: IBUPROFEN 400 MG TABLET (FP) PO PRN (13:46)
[2022-03-06] MEDS ORDERED: DICYCLOMINE HCL 10 MG CAPSULE PO PRN (13:46)
[2022-03-06] MEDS ORDERED: BISMUTH SUBSALICYLATE 262 MG/15 ML BTL PO PRN (13:46)
[2022-03-06] MEDS ORDERED: MAGNESIUM HYDROX 2400MG/30ML ORAL SUSPENSION 30 ML CUP PO PRN (13:46)
[2022-03-06] MEDS ORDERED: BUPRENORPHINE HCL 150 MCG FILM BC ONE (14:29)
[2022-03-06] MEDS ORDERED: BUPRENORPHINE HCL 75 MCG FILM BC ONE (14:30)
[2022-03-06] MEDS: IBUPROFEN 600 MG TABLET (FP) PO PRN (14:31)
[2022-03-06] MEDS: LORazepam 2 MG TABLET PO SCH ×2 (14:31→17:56)
[2022-03-06] MEDS: hydrOXYzine PAMOATE 25 MG CAPSULE (FP) PO SCH ×2 (14:32→17:56)
[2022-03-06] MEDS: NICOTINE 21 MG/24 HOURS TOPICAL PATCH TD SCH (14:40)
[2022-03-06] MEDS: NICOTINE 10 MG CARTRIDGE (INHALER) IH PRN (14:42)
[2022-03-07] MEDS ORDERED: BUPRENORPHINE HCL 150 MCG, BUPRENORPHINE HCL 75 MCG BC PRN
[2022-03-07] MEDS: MELATONIN 5 MG TABLETS PO SCH ×2 (00:21→23:56)
[2022-03-07] MEDS: hydrOXYzine PAMOATE 25 MG CAPSULE (FP) PO SCH ×6 (00:21→23:56)
[2022-03-07] MEDS: THIAMINE HCL 100 MG TABLET (FP) PO SCH ×2 (00:21→23:57)
[2022-03-07] MEDS: LORazepam 2 MG TABLET PO SCH ×5 (00:27→23:57)
[2022-03-07] MEDS ORDERED: BUPRENORPHINE HCL 150 MCG FILM BC ONE ×2 (04:36→17:10)
[2022-03-07] MEDS ORDERED: BUPRENORPHINE HCL 75 MCG FILM BC ONE ×2 (04:37→17:10)
[2022-03-07] MEDS: BUPRENORPHINE HCL 150 MCG, BUPRENORPHINE HCL 75 MCG BC SCH ×2 (07:44→18:14)
[2022-03-07 10:28] LABS: HEMATOCRIT 35.8 % (35.4-49); HEMOGLOBIN 11.6 GM/dL (11.7-16.9); MCH 27.6 pg (25.7-33.7); MCHC 32.3 g/dl (32.0-35.9); MEAN CELL VOLUME 85.5 fl (80-96); MEAN PLT VOLUME 9.5 fl (7.5-11.1); PLATELET COUNT 243 10^3/uL (134-434); RBC 4.19 M/mm3 (4.00-5.60); RDW 13.9 % (11.9-15.9); WHITE BLOOD COUNT 7.7 K/mm3 (4.0-10.0)
[2022-03-07 10:54] LABS: CALCIUM 9.1 mg/dL (8.5-10.1)
[2022-03-07 10:55] LABS: ALBUMIN 3.9 g/dl (3.4-5.0); BLOOD UREA NITROGEN 17.1 mg/dL (7-18)
[2022-03-07 10:58] LABS: CREATININE 0.8 mg/dL (0.55-1.3)
[2022-03-07 10:59] LABS: BILIRUBIN,TOTAL 0.9 mg/dL (0.2-1); TOT PROT 7.3 g/dl (6.4-8.2)
[2022-03-07] MEDS: PRENATAL VITAMINS W/ FOLIC ACID TABLET (FP) PO SCH (11:31)
[2022-03-07] MEDS: NICOTINE 21 MG/24 HOURS TOPICAL PATCH TD SCH (11:31)
[2022-03-07 15:59] LABS: HIV INTERPRETATION NEGATIVE (NEGATIVE)
[2022-03-07] MEDS: cloNIDine HCL 0.1 MG TABLET PO PRN (18:12)
[2022-03-07] MEDS: METHOCARBAMOL 500 MG TABLET PO PRN (18:12)
[2022-03-07] MEDS: IBUPROFEN 600 MG TABLET (FP) PO PRN (18:12)
[2022-03-08] MEDS: LORazepam 1 MG TABLET PO PRN ×2 (01:38→20:28)
[2022-03-08] MEDS: hydrOXYzine PAMOATE 25 MG CAPSULE (FP) PO SCH ×5 (06:00→23:09)
[2022-03-08] MEDS: BUPRENORPHINE HCL 450 MCG FILM BC SCH ×2 (06:00→20:24)
[2022-03-08] MEDS: LORazepam 1 MG TABLET PO SCH ×4 (06:00→23:08)
[2022-03-08] MEDS: NICOTINE 21 MG/24 HOURS TOPICAL PATCH TD SCH (11:35)
[2022-03-08] MEDS: PRENATAL VITAMINS W/ FOLIC ACID TABLET (FP) PO SCH (11:35)
[2022-03-08] MEDS ORDERED: BUPRENORPHINE/NALOXONE 2 MG/0.5 MG FILM PACKET SL ONE ×2 (17:45→21:59)
[2022-03-08] MEDS: cloNIDine HCL 0.1 MG TABLET PO PRN (17:48)
[2022-03-08] MEDS: IBUPROFEN 600 MG TABLET (FP) PO PRN (17:48)
[2022-03-08] MEDS: METHOCARBAMOL 500 MG TABLET PO PRN (17:48)
[2022-03-08] MEDS: MELATONIN 5 MG TABLETS PO SCH (23:09)
[2022-03-08] MEDS: THIAMINE HCL 100 MG TABLET (FP) PO SCH (23:09)
[2022-03-09] MEDS ORDERED: LORazepam 0.5 MG TABLET PO PRN
[2022-03-09] MEDS ORDERED: LORazepam 0.5 MG TABLET PO SCH (05:00)
[2022-03-09] MEDS: hydrOXYzine PAMOATE 25 MG CAPSULE (FP) PO SCH (05:29)
[2022-03-09] MEDS: NICOTINE 10 MG CARTRIDGE (INHALER) IH PRN (05:54)
[2022-03-09] MEDS ORDERED: BUPRENORPHINE/NALOXONE 4 MG/1 MG FILM PACKET SL SCH (06:00)
[2022-03-09 06:34] VITALS: BP 126/83; PULSE 61; RESP 17; TEMP 97.1
[2022-03-10] MEDS ORDERED: LORazepam 0.5 MG TABLET PO ONE (05:00)
[2022-03-10] MEDS ORDERED: BUPRENORPHINE/NALOXONE 8 MG/2 MG FILM PACKET SL ONE (06:00)
== END 2022-03-09 08:30 | disposition left against medical advice (07) | DRG 770 ==
LOC: YASAS 10:23 → Y6N 12:03
PROVIDERS: ADMIT Allergy & Immunology; ATTEND Surgery
PROC: HZ2ZZZZ Detoxification Services for Substance Abuse Treatment (ICD-10-PCS; principal; 2022-03-06)
DX: F11.23 Opioid dependence with withdrawal (principal); F10.230 Alcohol dependence with withdrawal, uncomplicated; F13.230 Sedative, hypnotic or anxiolytic dependence with withdrawal, uncomplicated; F14.20 Cocaine dependence, uncomplicated; F17.210 Nicotine dependence, cigarettes, uncomplicated; F39 Unspecified mood [affective] disorder; F19.24 Other psychoactive substance dependence with psychoactive substance-induced mood disorder; F19.282 Other psychoactive substance dependence with psychoactive substance-induced sleep disorder; F32.A Depression, unspecified; R10.84 Generalized abdominal pain; M19.90 Unspecified osteoarthritis, unspecified site; Z86.19 Personal history of other infectious and parasitic diseases; Z91.14 Patient's other noncompliance with medication regimen; Z56.0 Unemployment, unspecified; Z59.00 Homelessness unspecified
CPT/HCPCS: 36415; 80053; 85027; 86780; 87389; 87811; C9803-CS; J0735; U0003; U0005

== ENCOUNTER 2023-07-13 17:21 | Inpatient (IN) | payer OTHER ==
[2023-07-13 19:39] VITALS: BMI 19.4
[2023-07-13] MEDS ORDERED: BISMUTH SUBSALICYLATE 524 MG/30 ML PO PRN (21:09)
[2023-07-13] MEDS ORDERED: LOPERAMIDE HCL 2 MG CAPSULE PO PRN (21:09)
[2023-07-13] MEDS ORDERED: guaiFENesin 600 MG TABLET.ER (FP) PO PRN (21:09)
[2023-07-13] MEDS ORDERED: BENZONATATE 200 MG CAPSULE PO PRN (21:09)
[2023-07-13] MEDS ORDERED: BENZOCAINE/MENTHOL (CHLORASEPTIC ) LOZENGE MM PRN (21:09)
[2023-07-13] MEDS ORDERED: MAGNESIUM HYDROX 2400MG/30ML ORAL SUSPENSION 30 ML CUP PO PRN (21:09)
[2023-07-13] MEDS ORDERED: NALOXONE HCL 0.4 MG/ML VIAL IM PRN (21:09)
[2023-07-13] MEDS ORDERED: ACETAMINOPHEN 325 MG TABLET (FP) PO PRN (21:09)
[2023-07-13] MEDS ORDERED: NALOXONE HCL (KLOXXADO) 8 MG SPRAY NS PRN (21:09)
[2023-07-13] MEDS ORDERED: ONDANSETRON *ODT* 4 MG TABLET SL PRN (21:09)
[2023-07-13] MEDS ORDERED: NICOTINE POLACRILEX 2 MG GUM BUC PRN (21:09)
[2023-07-13] MEDS ORDERED: MAG HYDROX/AL HYDROX/SIMETH 30 ML UNIT-DOSE CUP PO PRN (21:09)
[2023-07-13] MEDS ORDERED: POLYETHYLENE GLYCOL (HEALTHYLAX) 3350 17 GM PACKET PO PRN (21:09)
[2023-07-13] MEDS ORDERED: IBUPROFEN 400 MG TABLET (FP) PO PRN (21:09)
[2023-07-13] MEDS ORDERED: LORazepam 1 MG TABLET PO PRN (21:35)
[2023-07-13] MEDS: LORazepam 2 MG TABLET PO SCH (22:35)
[2023-07-13] MEDS: MELATONIN 5 MG TABLETS PO SCH (22:35)
[2023-07-13] MEDS: THIAMINE HCL 100 MG TABLET (FP) PO SCH (22:35)
[2023-07-13] MEDS: IBUPROFEN 600 MG TABLET (FP) PO PRN (22:37)
[2023-07-13] MEDS: METHOCARBAMOL 500 MG TABLET PO PRN (22:37)
[2023-07-14] MEDS: LORazepam 2 MG TABLET PO SCH ×4 (06:27→23:28)
[2023-07-14] MEDS: PRENATAL VITAMINS W/ FOLIC ACID TABLET (FP) PO SCH (10:06)
[2023-07-14] MEDS: NICOTINE 21 MG/24 HOURS TOPICAL PATCH TD SCH (10:30)
[2023-07-14] MEDS: methaDONE HCL 10 MG TABLET PO SCH (10:34)
[2023-07-14] MEDS: METHOCARBAMOL 500 MG TABLET PO PRN (10:36)
[2023-07-14 11:37] LABS: CHLORIDE 108 mmol/L (98-107); HEMATOCRIT 37.5 % (35.4-49); HEMOGLOBIN 12.1 GM/dL (11.7-16.9); MCH 27.5 pg (25.7-33.7); MCHC 32.2 g/dl (32.0-35.9); MEAN CELL VOLUME 85.4 fl (80-96); PLATELET COUNT 217 10^3/uL (134-434); POTASSIUM 4.4 mmol/L (3.5-5.1); RBC 4.39 M/mm3 (4.00-5.60); RDW 13.3 % (11.9-15.9); SODIUM 142 mmol/L (136-145); WHITE BLOOD COUNT 5.6 K/mm3 (4.0-10.0)
[2023-07-14 11:44] LABS: ANION GAP 5 mmol/L (4-13); CALCIUM 8.6 mg/dL (8.5-10.1); CO2 29 mmol/L (21-32)
[2023-07-14 11:45] LABS: ALBUMIN 3.1 g/dl (3.4-5.0); GLUCOSE,RANDOM 101 mg/dL (74-106)
[2023-07-14 11:47] LABS: CREATININE 0.7 mg/dL (0.55-1.3); SGPT/ALT 17 U/L (13-61)
[2023-07-14 11:48] LABS: BILIRUBIN,TOTAL 0.7 mg/dL (0.2-1); SGOT/AST 14 U/L (15-37)
[2023-07-14 11:49] LABS: TOT PROT 6.2 g/dl (6.4-8.2)
[2023-07-14 11:50] LABS: ALK PHOS 80 U/L (45-117)
[2023-07-14] MEDS: THIAMINE HCL 100 MG TABLET (FP) PO SCH (23:27)
[2023-07-14] MEDS: MELATONIN 5 MG TABLETS PO SCH (23:27)
[2023-07-15] MEDS: LORazepam 1 MG TABLET PO SCH ×4 (05:58→22:27)
[2023-07-15] MEDS: methaDONE HCL 10 MG TABLET PO SCH (05:59)
[2023-07-15] MEDS: PRENATAL VITAMINS W/ FOLIC ACID TABLET (FP) PO SCH (09:36)
[2023-07-15] MEDS: METHOCARBAMOL 500 MG TABLET PO PRN ×3 (09:36→22:26)
[2023-07-15] MEDS: NICOTINE 21 MG/24 HOURS TOPICAL PATCH TD SCH (09:44)
[2023-07-15] MEDS: IBUPROFEN 600 MG TABLET (FP) PO PRN (17:56)
[2023-07-15] MEDS: MELATONIN 5 MG TABLETS PO SCH (22:24)
[2023-07-15] MEDS: THIAMINE HCL 100 MG TABLET (FP) PO SCH (22:24)
[2023-07-15] MEDS: hydrOXYzine PAMOATE 25 MG CAPSULE (FP) PO PRN (22:24)
[2023-07-16] MEDS ORDERED: LORazepam 0.5 MG TABLET PO PRN
[2023-07-16] MEDS: LORazepam 0.5 MG TABLET PO SCH ×4 (06:00→22:24)
[2023-07-16] MEDS: methaDONE HCL 10 MG TABLET PO SCH (06:15)
[2023-07-16] MEDS: PRENATAL VITAMINS W/ FOLIC ACID TABLET (FP) PO SCH (10:26)
[2023-07-16] MEDS: NICOTINE 21 MG/24 HOURS TOPICAL PATCH TD SCH (10:27)
[2023-07-16] MEDS: METHOCARBAMOL 500 MG TABLET PO PRN (19:24)
[2023-07-16] MEDS: IBUPROFEN 600 MG TABLET (FP) PO PRN (19:25)
[2023-07-16] MEDS: THIAMINE HCL 100 MG TABLET (FP) PO SCH (22:24)
[2023-07-16] MEDS: MELATONIN 5 MG TABLETS PO SCH (22:24)
[2023-07-16] MEDS: hydrOXYzine PAMOATE 25 MG CAPSULE (FP) PO PRN (22:24)
[2023-07-17] MEDS ORDERED: LORazepam 0.5 MG TABLET PO ONE (05:00)
[2023-07-17] MEDS: methaDONE HCL 10 MG TABLET PO SCH (05:43)
[2023-07-17] MEDS: hydrOXYzine PAMOATE 25 MG CAPSULE (FP) PO PRN ×3 (07:13→23:29)
[2023-07-17] MEDS: PRENATAL VITAMINS W/ FOLIC ACID TABLET (FP) PO SCH (10:18)
[2023-07-17] MEDS: NICOTINE 21 MG/24 HOURS TOPICAL PATCH TD SCH (11:41)
[2023-07-17] MEDS: METHOCARBAMOL 500 MG TABLET PO PRN ×2 (17:39→23:29)
[2023-07-17] MEDS: MELATONIN 5 MG TABLETS PO SCH ×2 (21:57→23:34)
[2023-07-17] MEDS: THIAMINE HCL 100 MG TABLET (FP) PO SCH (21:57)
[2023-07-18] MEDS: methaDONE HCL 10 MG TABLET PO SCH (05:42)
[2023-07-18] MEDS: METHOCARBAMOL 500 MG TABLET PO PRN (05:44)
[2023-07-18] MEDS: PRENATAL VITAMINS W/ FOLIC ACID TABLET (FP) PO SCH (10:18)
[2023-07-18] MEDS: NICOTINE 21 MG/24 HOURS TOPICAL PATCH TD SCH (11:32)
[2023-07-18 12:55] VITALS: BP 125/78; PULSE 82; RESP 16; TEMP 98.1
== END 2023-07-18 13:28 | disposition home or self-care (01) | DRG 773 ==
LOC: YASAS 17:21 → Y3N 21:06
PROVIDERS: ADMIT Allergy & Immunology; ATTEND Surgery
PROC: HZ2ZZZZ Detoxification Services for Substance Abuse Treatment (ICD-10-PCS; principal; 2023-07-13)
DX: F11.23 Opioid dependence with withdrawal (principal); F10.230 Alcohol dependence with withdrawal, uncomplicated; F14.20 Cocaine dependence, uncomplicated; F17.210 Nicotine dependence, cigarettes, uncomplicated; F25.9 Schizoaffective disorder, unspecified; F19.282 Other psychoactive substance dependence with psychoactive substance-induced sleep disorder; F19.24 Other psychoactive substance dependence with psychoactive substance-induced mood disorder; F41.9 Anxiety disorder, unspecified; F32.A Depression, unspecified; M25.552 Pain in left hip; R26.89 Other abnormalities of gait and mobility; Z99.89 Dependence on other enabling machines and devices; Z62.810 Personal history of physical and sexual abuse in childhood; Z86.19 Personal history of other infectious and parasitic diseases; Z56.0 Unemployment, unspecified; Z59.00 Homelessness unspecified
CPT/HCPCS: 36415; 80053; 80305; 80307; 85027; 86780; 87635; Q0162